=== PATIENT | female | born 1970 | race Caucasian/White ===

== ENCOUNTER 2016-05-30 09:31 | Emergency (ER) | payer OTHER ==
[2016-05-30] MEDS ORDERED: Ondansetron INJ* 2 MG/ML VIAL IV ONE (10:31)
[2016-05-30] MEDS ORDERED: HYDROmorphone INJ* 1 MG/ML CARPUJECT SYRINGE IV ONE (10:31)
[2016-05-30] MEDS ORDERED: NS 0.9% 1000 ML* 1,000 ML IV ONE (10:31)
[2016-05-30 10:44] LABS: Urine Bacteria Absent (Absent); Urine Bilirubin Negative (Negative); Urine Glucose Negative (Negative); Urine Nitrite Negative (Negative)
--- NOTE | 2016-05-30 11:31 | RAD ---
Indication: Pelvic pain. COMPARISON: Comparison is made with a prior ultrasound of the pelvis from May 29, 2015. TECHNIQUE: Multiple real-time transvaginal images of the pelvis were obtained. FINDINGS: The uterus is heterogeneous in echogenicity and upper limits of normal in size. The uterus measured 9.6 x 4.6 x 5.6 cm. The endometrial echo measured 0.4 cm in thickness. There are masses within the body and fundus of the uterus measuring 0.6 x 0.3 x 0.6 and 2.0 x 1.9 x 1.7 cm consistent with leiomyomas. The right ovary measured 2.7 x 2.5 x 2.4 cm. The patient is status post left oophorectomy. There is vascular flow within the right ovary. There is a small 1.1 cm right ovarian follicular cyst. There is a tubular structure adjacent to the right ovary which is unchanged from the prior study suggestive of a hydrosalpinx No free intraperitoneal fluid is seen. IMPRESSION: 1. SMALL TO MODERATE SIZE LEIOMYOMAS. 2. RIGHT-SIDE HYDROSALPINX, UNCHANGED. 3. STATUS POST LEFT OOPHORECTOMY.
[2016-05-30 12:25] LABS: Hematocrit 38 % (35-47); Hemoglobin 12.4 g/dl (12.0-16.0); Mean Corpuscular HGB Conc 33 g/dl (31-36); Mean Corpuscular Hemoglobin 30 pg (27-31); Mean Corpuscular Volume 92 fL (80-97); Mean Platelet Volume 8 um3 (7.4-10.4); Red Blood Count 4.09 10^6/ul (4.0-5.4); Red Cell Distribution Width 14 % (10.5-15); White Blood Count 9.9 10^3/ul (3.5-10.8)
[2016-05-30 12:56] LABS: ALT 10 U/L (7-52); AST 13 U/L (13-39); Albumin 3.5 g/dL (3.2-5.2); Alkaline Phosphatase 62 U/L (34-104); Anion Gap 4 mmol/L (2-11); BUN/Creatinine Ratio 11.9 (8-20); Blood Urea Nitrogen 8 mg/dL (6-24); C Reactive Protein 23.13 mg/L (< 5.00); CO2 Carbon Dioxide 24 mmol/L (22-32); Calcium 8.3 mg/dL (8.6-10.3); Chloride 107 mmol/L (101-111); EGFR Non-African American 95.6 (>60); Globulin 3.1 g/dL (2-4); Glucose 94 mg/dL (70-100); Lipase 22 U/L (11.0-82.0); Potassium 3.8 mmol/L (3.5-5.0); Sodium 135 mmol/L (133-145); Total Protein 6.6 g/dL (6.4-8.9)
[2016-05-30 14:57] VITALS: BP 49/17
--- NOTE | 2016-05-31 15:51 | ED ---
South Owen Karl, scribed for Selvin Horvath MD on 05/30/16 at 0957 . Abdominal Pain/Female - HPI Summary HPI Summary: Pt is a 46 y/o female that presents to the ED c/o suprapubic abd pain that began 2 days ago and has gotten worse. Pt reported the pain as a 10/10 intermittent stabbing pain "like someone is stabbing me in the stomach." Pt reported that it bothered her last night and again this morning. Pt reported that her menses began 2 days ago in concurrence with her abd pain but stated that her abd pain is like nothing she has ever felt before. Pt also reported that her pain is aggravated by walking and that she tried taking ibuprofen but it did not alleviate her symptoms. Pt denied nausea, urinary sx, problems moving bowels, and vaginal bleeding/discharge. - History of Current Complaint Chief Complaint: EDAbdPain Stated Complaint: ABD PAIN Time Seen by Provider: 05/30/16 09:55 Hx Obtained From: Patient Hx Last Menstrual Period: 04/25/14 Onset/Duration: Gradual Onset, Lasting Days - 2, Worse Since Timing: Intermittent Episode Lasting - "a while" Severity Initially: Moderate Severity Currently: Moderate Pain Intensity: 10 - abd pain Pain Scale Used: 0-10 Numeric Location: Suprapubic Radiates: No Character: Sharp Aggravating Factor(s): Movement - walking Alleviating Factor(s): Nothing Associated Signs and Symptoms: Negative: Urinary Symptoms, Vaginal Bleeding, Vaginal Discharge, Nausea Allergies/Adverse Reactions: Allergies Allergy/AdvReac Type Severity Reaction Status Date / Time Metoclopramide [From Reglan] Allergy Agitation Verified 05/30/16 09:42 Niacin [From Niaspan] Allergy Rash Verified 05/30/16 09:42 PMH/Surg Hx/FS Hx/Imm Hx Endocrine/Hematology History: Denies: Hx Anticoagulant Therapy, Hx Diabetes, Hx Thyroid Disease Cardiovascular History: Reports: Hx Angina, Other Cardiovascular Problems/ Disorders - CP WITH CARDIAC CATH IN 2011 WITH NO FINDINGS. Denies: Hx Hypertension, Hx Pacemaker/ICD Respiratory History: Reports: Other Respiratory Problems/Disorders - SOB WITH NAUSEA OR ANXIETY Denies: Hx Asthma, Hx Chronic Obstructive Pulmonary Disease (COPD) History: Denies: Hx Renal Disease Musculoskeletal History: Reports: Hx Back Problems, Other Musculoskeletal History - Restless leg syndrome, undiagnosed probs with spine and left side Sensory History: Reports: Hx Contacts or Glasses Denies: Hx Hearing Aid Opthamlomology History: Reports: Hx Contacts or Glasses Neurological History: Reports: Hx Headaches, Hx Migraine, Other Neuro Impairments/Disorders - restless leg syndrome, sees zaida as out pt Denies: Hx Dementia, Hx Seizures Psychiatric History: Reports: Hx Anxiety Denies: Hx Panic Disorder, Hx Substance Abuse - Cancer History Hx Chemotherapy: No Hx Radiation Therapy: No Hx Palliative Cancer Treatment: No - Surgical History Surgery Procedure, Year, and Place: throat biopsy. x2. tubal ligation. hernia repair x2. left oophrectomy. 3 lumps removed 2 were on rt and lt arm and then one on rt buttock Hx Anesthesia Reactions: No - Immunization History Date of Tetanus Vaccine: Unk Date of Influenza Vaccine: Philisophically opposed Infectious Disease History: No Infectious Disease History: Denies: Hx Hepatitis, Hx Human Immunodeficiency Virus (HIV), History Other Infectious Disease, Traveled Outside the [place] in Last 30 Days - Family History Known Family History: Positive: Cardiac Disease - CAD - Social History Alcohol Use: Occasionally Alcohol Amount: 1-2 PER MONTH Substance Use Type: Reports: None Hx Tobacco Use: No Smoking Status (MU): Never Smoked Tobacco Review of Systems Constitutional: Negative Eyes: Negative ENT: Negative Cardiovascular: Negative Respiratory: Negative Positive: Abdominal Pain. Negative: Nausea Genitourinary: Negative Musculoskeletal: Negative Skin: Negative Neurological: Negative Psychological: Normal All Other Systems Reviewed And Are Negative: Yes Physical Exam Triage Information Reviewed: Yes Vital Signs On Initial Exam: Initial Vitals Temp Pulse Resp BP Pulse Ox 98.2 F 77 16 99/57 97 05/30/16 09:42 05/30/16 09:42 05/30/16 09:42 05/30/16 09:42 05/30/16 09:42 Vital Signs Reviewed: Yes Appearance: Positive: Well-Appearing, No Pain Distress Skin: Positive: Warm, Skin Color Reflects Adequate Perfusion, Dry Head/Face: Positive: Normal Head/Face Inspection Eyes: Positive: Normal ENT: Positive: Normal ENT inspection Neck: Positive: Supple, Nontender Respiratory/Lung Sounds: Positive: Clear to Auscultation, Breath Sounds Present Cardiovascular: Positive: RRR Abdomen Description: Positive: Soft, Other: - mild tenderness in adnexa Bowel Sounds: Positive: Present Pelvic Exam: Positive: external exam normal, speculum exam normal, bimanual exam normal, no cerv. motion tender, no masses, blood Musculoskeletal: Positive: Normal Neurological: Positive: Normal Psychiatric: Positive: Normal, Affect/Mood Appropriate Diagnostics - Vital Signs Vital Signs Temp Pulse Resp BP Pulse Ox 05/30/16 09:44 79 94 05/30/16 09:42 98.2 F 77 16 99/57 97 - Laboratory Lab Results: Lab Results 05/30/16 05/30/16 05/30/16 Range/Units 08:14 10:17 12:10 WBC 9.9 (3.5-10.8) 10^3/ul RBC 4.09 (4.0-5.4) 10^6/ul Hgb 12.4 (12.0-16.0) g/dl Hct 38 (35-47) % MCV 92 (80-97) fL MCH 30 (27-31) pg MCHC 33 (31-36) g/dl RDW 14 (10.5-15) % Plt Count 200 (150-450) 10^3/ul MPV 8 (7.4-10.4) um3 Neut % (Auto) 72.3 (38-83) % Lymph % (Auto) 19.8 L (25-47) % [place] % (Auto) 7.1 (1-9) % Eos % (Auto) 0.4 (0-6) % Baso % (Auto) 0.4 (0-2) % Absolute Neuts (auto) 7.2 (1.5-7.7) 10^3/ul Absolute Lymphs (auto) 2.0 (1.0-4.8) 10^3/ul Absolute Monos (auto) 0.7 (0-0.8) 10^3/ul Absolute Eos (auto) 0 (0-0.6) 10^3/ul Absolute Basos (auto) 0 (0-0.2) 10^3/ul Absolute Nucleated RBC 0 10^3/ul Nucleated RBC % 0 Sodium (133-145) mmol/L Potassium (3.5-5.0) mmol/L Chloride (101-111) mmol/L Carbon Dioxide (22-32) mmol/L Anion Gap (2-11) mmol/L BUN (6-24) mg/dL Creatinine (0.51-0.95) mg/dL Est GFR ( Amer) (>60) Est GFR (Non-Af Amer) (>60) BUN/Creatinine Ratio (8-20) Glucose (70-100) mg/dL Lactic Acid (0.5-2.0) mmol/L Calcium (8.6-10.3) mg/dL Total Bilirubin (0.2-1.0) mg/dL AST (13-39) U/L ALT (7-52) U/L Alkaline Phosphatase (34-104) U/L C-Reactive Protein (< 5.00) mg/L Total Protein (6.4-8.9) g/dL Albumin (3.2-5.2) g/dL Globulin (2-4) g/dL Albumin/Globulin Ratio (1-3) Lipase (11.0-82.0) U/L Beta HCG, Quant mIU/mL Urine Color Yellow Urine Appearance Cloudy Urine pH 6.0 (5-9) Ur Specific [place] 1.021 (1.010-1.030) Urine Protein Negative (Negative) Urine Ketones Negative (Negative) Urine Blood 3+ H (Negative) Urine Nitrate Negative (Negative) Urine Bilirubin Negative (Negative) Urine Urobilinogen Negative (Negative) Ur Leukocyte Esterase Trace H (Negative) Urine WBC (Auto) Trace(0-5/hpf) (Absent) Urine RBC (Auto) 3+(>10/hpf) H (Absent) Ur Squamous Epith Cells Present H (Absent) Urine Bacteria Absent (Absent) Urine Glucose Negative (Negative) C.trachomatis (Amp Det) Negative (Negative) N.gonorrhoeae (Amp Det) Negative (Negative) T.vaginalis (Amp Det) Pending 05/30/16 05/30/16 Range/Units 12:10 12:10 WBC (3.5-10.8) 10^3/ul RBC (4.0-5.4) 10^6/ul Hgb (12.0-16.0) g/dl Hct (35-47) % MCV (80-97) fL MCH (27-31) pg MCHC (31-36) g/dl RDW (10.5-15) % Plt Count (150-450) 10^3/ul MPV (7.4-10.4) um3 Neut % (Auto) (38-83) % Lymph % (Auto) (25-47) % [place] % (Auto) (1-9) % Eos % (Auto) (0-6) % Baso % (Auto) (0-2) % Absolute Neuts (auto) (1.5-7.7) 10^3/ul Absolute Lymphs (auto) (1.0-4.8) 10^3/ul Absolute Monos (auto) (0-0.8) 10^3/ul Absolute Eos (auto) (0-0.6) 10^3/ul Absolute Basos (auto) (0-0.2) 10^3/ul Absolute Nucleated RBC 10^3/ul Nucleated RBC % Sodium 135 (133-145) mmol/L Potassium 3.8 (3.5-5.0) mmol/L Chloride 107 (101-111) mmol/L Carbon Dioxide 24 (22-32) mmol/L Anion Gap 4 (2-11) mmol/L BUN 8 (6-24) mg/dL Creatinine 0.67 (0.51-0.95) mg/dL Est GFR ( Amer) 123.0 (>60) Est GFR (Non-Af Amer) 95.6 (>60) BUN/Creatinine Ratio 11.9 (8-20) Glucose 94 (70-100) mg/dL Lactic Acid 0.4 L (0.5-2.0) mmol/L Calcium 8.3 L (8.6-10.3) mg/dL Total Bilirubin 0.40 (0.2-1.0) mg/dL AST 13 (13-39) U/L ALT 10 (7-52) U/L Alkaline Phosphatase 62 (34-104) U/L C-Reactive Protein 23.13 H (< 5.00) mg/L Total Protein 6.6 (6.4-8.9) g/dL Albumin 3.5 (3.2-5.2) g/dL Globulin 3.1 (2-4) g/dL Albumin/Globulin Ratio 1.1 (1-3) Lipase 22 (11.0-82.0) U/L Beta HCG, Quant < 0.60 mIU/mL Urine Color Urine Appearance Urine pH (5-9) Ur Specific [place] (1.010-1.030) Urine Protein (Negative) Urine Ketones (Negative) Urine Blood (Negative) Urine Nitrate (Negative) Urine Bilirubin (Negative) Urine Urobilinogen (Negative) Ur Leukocyte Esterase (Negative) Urine WBC (Auto) (Absent) Urine RBC (Auto) (Absent) Ur Squamous Epith Cells (Absent) Urine Bacteria (Absent) Urine Glucose (Negative) C.trachomatis (Amp Det) (Negative) N.gonorrhoeae (Amp Det) (Negative) T.vaginalis (Amp Det) Result Diagrams: 05/30/16 12:10 05/30/16 12:10 Lab Statement: Any lab studies that have been ordered have been reviewed, and results considered in the medical decision making process. - Additional Comments Diagnostic Additional Comments: US Transvaginal (Radiologist)IMPRESSION: 1. SMALL TO MODERATE SIZE LEIOMYOMAS. 2. RIGHT-SIDE HYDROSALPINX, UNCHANGED. 3. STATUS POST LEFT OOPHORECTOMY. Abdominal Pain Fem Course/Dx - Course Course Of Treatment: Nova Raya presented C/O suprapubic pain for two days in conjunction with her early period. Her periods have become a bit irregular of late. She denied any D/C (aside from blood( fever, or GI symptoms. Her W/U including labs, U/S and pelvic exam was unremarkable. She was D/C'd to home with symptomatic treatment. - Diagnoses Provider Diagnoses: PELVIC PAIN Discharge - Discharge Plan Condition: Stable Disposition: HOME Prescriptions: HYDROcodone/ACETAMIN 5-325 MG* [[place] 5-325 TAB*] 1 tab PO Q6H PRN #20 tab MDD 4 PRN Reason: Pain Patient Education Materials: Pelvic Pain in Women (ED) Forms: *Work Release Referrals: Irena Qureshi MD [Primary Care Provider] - Additional Instructions: Please follow up with your primary care provider. Return to the emergency department for changing or worsening symptoms. The documentation as recorded by the South olsen Karl accurately reflects the service I personally performed and the decisions made by me, Selvin Horvath MD. Addendum entered and electronically signed by Marisa Rg PA 06/01/16 07: 51: ED Addendum Addendum: Patient vaginal culture grew gardnerella per note is not having any vaginal discharge so no need for treatment. Attempted to call patient to confirm but number no longer in service.
== END 2016-05-30 14:56 | disposition home or self-care (01) ==
LOC: ED 09:31
DX: R10.2 Pelvic and perineal pain (principal); N76.0 Acute vaginitis; B96.89 Other specified bacterial agents as the cause of diseases classified elsewhere; D21.9 Benign neoplasm of connective and other soft tissue, unspecified; N70.11 Chronic salpingitis
CPT/HCPCS: 36415; 76830; 80053; 81003; 81015; 83605; 83690; 84702; 85025; 86140; 87086; 87480; 87491; 87510; 87591; 87661; 96360; 96374; 96375; 99283; J1170; J2405

== ENCOUNTER 2016-06-22 14:50 | Emergency (ER) | payer OTHER ==
[2016-06-22 17:09] LABS: Hematocrit 41 % (35-47); Hemoglobin 13.4 g/dl (12.0-16.0); Mean Corpuscular HGB Conc 32 g/dl (31-36); Mean Corpuscular Hemoglobin 30 pg (27-31); Mean Corpuscular Volume 92 fL (80-97); Mean Platelet Volume 8 um3 (7.4-10.4); Red Blood Count 4.47 10^6/ul (4.0-5.4); Red Cell Distribution Width 14 % (10.5-15); White Blood Count 6.2 10^3/ul (3.5-10.8)
[2016-06-22 17:25] LABS: Albumin 3.6 g/dL (3.2-5.2); BUN/Creatinine Ratio 10.1 (8-20); Calcium 8.7 mg/dL (8.6-10.3); EGFR African American 118.9 (>60); EGFR Non-African American 92.4 (>60); Globulin 3.4 g/dL (2-4); Potassium 4.1 mmol/L (3.5-5.0); Total Bilirubin 0.4 mg/dL (0.2-1.0)
[2016-06-22 18:57] LABS: Urine Bacteria Absent (Absent); Urine Bilirubin Negative (Negative); Urine Glucose Negative (Negative); Urine Nitrite Negative (Negative)
[2016-06-22] MEDS ORDERED: Ketorolac INJ* 60 MG/2 ML VIAL IM ONE (19:25)
--- NOTE | 2016-06-22 19:32 | ED ---
Abdominal Pain/Female - HPI Summary HPI Summary: pt with loweer abd pain for 1 month, seen in ed dx as ovarian cyst, seen by card table attendant states increased pain told by pcp to go to ed, pain radiates down leg - History of Current Complaint Chief Complaint: EDAbdPain Stated Complaint: LEFT FLANK PAIN, Time Seen by Provider: 06/22/16 19:14 Hx Obtained From: Patient Hx Last Menstrual Period: 04/25/14 Timing: Intermittent Episode Lasting Severity Initially: Moderate Severity Currently: Moderate Pain Intensity: 10 Location: Discrete At: LLQ Radiates: Yes Radiates to: Other - lt leg Aggravating Factor(s): Nothing Alleviating Factor(s): Vomiting Associated Signs and Symptoms: Positive: Negative Allergies/Adverse Reactions: Allergies Allergy/AdvReac Type Severity Reaction Status Date / Time Metoclopramide [From Reglan] Allergy Agitation Verified 05/30/16 09:42 Niacin [From Niaspan] Allergy Rash Verified 05/30/16 09:42 PMH/Surg Hx/FS Hx/Imm Hx Endocrine/Hematology History: Denies: Hx Anticoagulant Therapy, Hx Diabetes, Hx Thyroid Disease Cardiovascular History: Reports: Hx Angina, Other Cardiovascular Problems/ Disorders - CP WITH CARDIAC CATH IN 2011 WITH NO FINDINGS. Denies: Hx Hypertension, Hx Pacemaker/ICD Respiratory History: Reports: Other Respiratory Problems/Disorders - SOB WITH NAUSEA OR ANXIETY Denies: Hx Asthma, Hx Chronic Obstructive Pulmonary Disease (COPD) History: Denies: Hx Renal Disease Musculoskeletal History: Reports: Hx Back Problems, Other Musculoskeletal History - Restless leg syndrome, undiagnosed probs with spine and left side Sensory History: Reports: Hx Contacts or Glasses Denies: Hx Hearing Aid Opthamlomology History: Reports: Hx Contacts or Glasses Neurological History: Reports: Hx Headaches, Hx Migraine, Other Neuro Impairments/Disorders - restless leg syndrome, sees mamtaman as out pt Denies: Hx Dementia, Hx Seizures Psychiatric History: Reports: Hx Anxiety Denies: Hx Panic Disorder, Hx Substance Abuse - Cancer History Hx Chemotherapy: No Hx Radiation Therapy: No Hx Palliative Cancer Treatment: No - Surgical History Surgery Procedure, Year, and Place: throat biopsy. x2. tubal ligation. hernia repair x2. left oophrectomy. 3 lumps removed 2 were on rt and lt arm and then one on rt buttock Hx Anesthesia Reactions: No - Immunization History Date of Tetanus Vaccine: Unk Date of Influenza Vaccine: Philisophically opposed Infectious Disease History: No Infectious Disease History: Denies: Hx Hepatitis, Hx Human Immunodeficiency Virus (HIV), History Other Infectious Disease, Traveled Outside the [place] in Last 30 Days - Family History Known Family History: Positive: Cardiac Disease - CAD - Social History Alcohol Use: Occasionally Alcohol Amount: 1-2 PER MONTH Substance Use Type: Reports: None Hx Tobacco Use: No Smoking Status (MU): Never Smoked Tobacco Review of Systems Constitutional: Negative All Other Systems Reviewed And Are Negative: Yes Physical Exam Triage Information Reviewed: Yes Vital Signs On Initial Exam: Initial Vitals Temp Pulse Resp BP Pulse Ox 98.5 F 78 20 94/62 98 06/22/16 14:54 06/22/16 14:54 06/22/16 14:54 06/22/16 14:54 06/22/16 14:54 Vital Signs Reviewed: Yes Appearance: Positive: Well-Appearing, No Pain Distress Skin: Positive: Warm Head/Face: Positive: Normal Head/Face Inspection Eyes: Positive: HAILEY ENT: Positive: Hearing grossly normal Neck: Positive: Supple Respiratory/Lung Sounds: Positive: Clear to Auscultation, Breath Sounds Present Cardiovascular: Positive: RRR Abdomen Description: Positive: Nontender, Soft Bowel Sounds: Positive: Present Musculoskeletal: Positive: Strength/ROM Intact Neurological: Positive: Sensory/Motor Intact, Alert, Oriented to Person Place, Time Psychiatric: Positive: Normal Diagnostics - Vital Signs Vital Signs Temp Pulse Resp BP Pulse Ox 06/22/16 17:34 98.3 F 70 18 96/57 99 06/22/16 14:56 98.5 F 79 18 94/62 99 06/22/16 14:54 98.5 F 78 20 94/62 98 - Laboratory Lab Results: Lab Results 06/22/16 06/22/16 06/22/16 Range/Units 16:58 16:58 18:45 WBC 6.2 (3.5-10.8) 10^3/ul RBC 4.47 (4.0-5.4) 10^6/ul Hgb 13.4 (12.0-16.0) g/dl Hct 41 (35-47) % MCV 92 (80-97) fL MCH 30 (27-31) pg MCHC 32 (31-36) g/dl RDW 14 (10.5-15) % Plt Count 210 (150-450) 10^3/ul MPV 8 (7.4-10.4) um3 Neut % (Auto) 61.0 (38-83) % Lymph % (Auto) 27.9 (25-47) % [place] % (Auto) 10.0 H (1-9) % Eos % (Auto) 0.7 (0-6) % Baso % (Auto) 0.4 (0-2) % Absolute Neuts (auto) 3.8 (1.5-7.7) 10^3/ul Absolute Lymphs (auto) 1.7 (1.0-4.8) 10^3/ul Absolute Monos (auto) 0.6 (0-0.8) 10^3/ul Absolute Eos (auto) 0 (0-0.6) 10^3/ul Absolute Basos (auto) 0 (0-0.2) 10^3/ul Absolute Nucleated RBC 0 10^3/ul Nucleated RBC % 0 Sodium 132 L (133-145) mmol/L Potassium 4.1 (3.5-5.0) mmol/L Chloride 108 (101-111) mmol/L Carbon Dioxide 22 (22-32) mmol/L Anion Gap 2 (2-11) mmol/L BUN 7 (6-24) mg/dL Creatinine 0.69 (0.51-0.95) mg/dL Est GFR ( Amer) 118.9 (>60) Est GFR (Non-Af Amer) 92.4 (>60) BUN/Creatinine Ratio 10.1 (8-20) Glucose 92 (70-100) mg/dL Calcium 8.7 (8.6-10.3) mg/dL Total Bilirubin 0.40 (0.2-1.0) mg/dL AST 16 (13-39) U/L ALT 13 (7-52) U/L Alkaline Phosphatase 63 (34-104) U/L Total Protein 7.0 (6.4-8.9) g/dL Albumin 3.6 (3.2-5.2) g/dL Globulin 3.4 (2-4) g/dL Albumin/Globulin Ratio 1.1 (1-3) Lipase 31 (11.0-82.0) U/L Urine Color Yellow Urine Appearance Clear Urine pH 7.0 (5-9) Ur Specific [place] 1.018 (1.010-1.030) Urine Protein Negative (Negative) Urine Ketones Negative (Negative) Urine Blood 1+ H (Negative) Urine Nitrate Negative (Negative) Urine Bilirubin Negative (Negative) Urine Urobilinogen Negative (Negative) Ur Leukocyte Esterase Negative (Negative) Urine WBC (Auto) Trace(0-5/hpf) (Absent) Urine RBC (Auto) Trace(0-2/hpf) (Absent) Ur Squamous Epith Cells Present H (Absent) Urine Bacteria Absent (Absent) Urine Glucose Negative (Negative) Urine Ascorbic Acid * H (Negative) Result Diagrams: 06/22/16 16:58 06/22/16 16:58 Lab Statement: Any lab studies that have been ordered have been reviewed, and results considered in the medical decision making process. Abdominal Pain Fem Course/Dx - Diagnoses Provider Diagnoses: Abdominal pain Discharge - Discharge Plan Condition: Improved Disposition: HOME Prescriptions: Naproxen TAB* [Naprosyn TAB*] 500 mg PO BID #30 tab Patient Education Materials: Abdominal Pain (ED) Additional Instructions: follow up with your physician within the next few days
[2016-06-22 20:44] VITALS: BP 136/100
== END 2016-06-22 20:43 | disposition home or self-care (01) ==
LOC: ED 14:50
DX: R10.32 Left lower quadrant pain (principal)
CPT/HCPCS: 36415; 80053; 81003; 81015; 83690; 85025; 96372; 99284; J1885

== ENCOUNTER 2016-06-24 22:38 | Emergency (ER) | payer OTHER ==
--- NOTE | 2016-06-25 01:49 | ED ---
hilary Owen Timothy, scribed for Raymond Mcknight MD on 06/25/16 at 0133 . GI/ HPI - HPI Summary HPI Summary: Nova Raya is a 46 yo female presenting to [facility] with 2/10 lower abd pain and heavy vaginal bleeding since 0630 this morning. She was recently diagnosed with fibroids. Her MHx includes anxiety, DELEON, restless leg syndrome, hernia repair, bilateral oophorectomy. - History of Current Complaint Chief Complaint: EDVaginalBleeding Time Seen by Provider: 06/25/16 01:31 Stated Complaint: VAG BLEED WITH CLOTS Hx Obtained From: Patient Onset/Duration: Started Hours Ago, Still Present Timing: Constant Severity: Moderate Current Severity: Moderate Pain Intensity: 2 Location of Pain: Suprapubic Associated Signs and Symptoms: Positive: Abdominal Pain - Allergy/Home Medications Allergies/Adverse Reactions: Allergies Allergy/AdvReac Type Severity Reaction Status Date / Time Metoclopramide [From Reglan] Allergy Agitation Verified 05/30/16 09:42 Niacin [From Niaspan] Allergy Rash Verified 05/30/16 09:42 PMH/Surg Hx/FS Hx/Imm Hx Endocrine/Hematology History: Denies: Hx Anticoagulant Therapy, Hx Diabetes, Hx Thyroid Disease Cardiovascular History: Reports: Hx Angina, Other Cardiovascular Problems/ Disorders - CP WITH CARDIAC CATH IN 2011 WITH NO FINDINGS. Denies: Hx Hypertension, Hx Pacemaker/ICD Respiratory History: Reports: Other Respiratory Problems/Disorders - SOB WITH NAUSEA OR ANXIETY Denies: Hx Asthma, Hx Chronic Obstructive Pulmonary Disease (COPD) History: Denies: Hx Renal Disease Musculoskeletal History: Reports: Hx Back Problems, Other Musculoskeletal History - Restless leg syndrome, undiagnosed probs with spine and left side Sensory History: Reports: Hx Contacts or Glasses Denies: Hx Hearing Aid Opthamlomology History: Reports: Hx Contacts or Glasses Neurological History: Reports: Hx Headaches, Hx Migraine, Other Neuro Impairments/Disorders - restless leg syndrome, sees mamtaman as out pt Denies: Hx Dementia, Hx Seizures Psychiatric History: Reports: Hx Anxiety Denies: Hx Panic Disorder, Hx Substance Abuse - Cancer History Hx Chemotherapy: No Hx Radiation Therapy: No Hx Palliative Cancer Treatment: No - Surgical History Surgery Procedure, Year, and Place: throat biopsy. x2. tubal ligation. hernia repair x2. left oophrectomy. 3 lumps removed 2 were on rt and lt arm and then one on rt buttock Hx Anesthesia Reactions: No - Immunization History Date of Tetanus Vaccine: Unk Date of Influenza Vaccine: Philisophically opposed Infectious Disease History: No Infectious Disease History: Denies: Hx Hepatitis, Hx Human Immunodeficiency Virus (HIV), History Other Infectious Disease, Traveled Outside the [place] in Last 30 Days - Family History Known Family History: Positive: Cardiac Disease - CAD - Social History Alcohol Use: Occasionally Alcohol Amount: 1-2 PER MONTH Substance Use Type: Reports: None Hx Tobacco Use: No Smoking Status (MU): Never Smoked Tobacco Review of Systems Constitutional: Negative Eyes: Negative ENT: Negative Cardiovascular: Negative Respiratory: Negative Positive: Abdominal Pain Genitourinary: Other - vaginal bleeding Musculoskeletal: Negative Skin: Negative Neurological: Negative Psychological: Normal All Other Systems Reviewed And Are Negative: Yes Physical Exam Triage Information Reviewed: Yes Vital Signs On Initial Exam: Initial Vitals Temp Pulse Resp BP Pulse Ox 97 F 75 18 103/57 98 06/24/16 22:44 06/24/16 22:44 06/24/16 22:44 06/24/16 22:44 06/24/16 22:44 Vital Signs Reviewed: Yes Appearance: Positive: Well-Appearing, No Pain Distress Skin: Positive: Warm Head/Face: Positive: Normal Head/Face Inspection Eyes: Positive: HAILEY ENT: Positive: Hearing grossly normal Neck: Positive: Supple Respiratory/Lung Sounds: Positive: Breath Sounds Present Cardiovascular: Positive: RRR Abdomen Description: Positive: Nontender, No Organomegaly, Soft Bowel Sounds: Positive: Present Neurological: Positive: Alert, Oriented to Person Place, Time Diagnostics - Vital Signs Vital Signs Temp Pulse Resp BP Pulse Ox 06/25/16 00:15 82 97/60 99 06/24/16 22:44 97 F 75 18 103/57 98 - Laboratory Result Diagrams: 06/25/16 02:07 Lab Statement: Any lab studies that have been ordered have been reviewed, and results considered in the medical decision making process. 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 After clinical examination and review of her lab work, she will be discharged home with dysfunctional uterine bleeding and instructions to follow up with her RN LAB. - Diagnoses Provider Diagnoses: Dysfunctional uterine bleeding Discharge - Discharge Plan Condition: Stable Disposition: HOME Patient Education Materials: Dysfunctional Uterine Bleeding (ED) Referrals: Irena Qureshi MD [Primary Care Provider] - Cedrick Santana MD [Medical Doctor] - 2 Days Additional Instructions: Please follow up with your GENERAL F[facility]ER within 2 days regarding your visit to the emergency department today. Return to the emergency department with any new or recurring symptoms. The documentation as recorded by the hilary olsen Timothy accurately reflects the service I personally performed and the decisions made by me, Raymond Mcknight MD.
[2016-06-25 02:17] LABS: Hematocrit 38 % (35-47); Hemoglobin 12.5 g/dl (12.0-16.0); Mean Corpuscular HGB Conc 33 g/dl (31-36); Mean Corpuscular Hemoglobin 30 pg (27-31); Mean Corpuscular Volume 93 fL (80-97); Mean Platelet Volume 8 um3 (7.4-10.4); Red Blood Count 4.15 10^6/ul (4.0-5.4); Red Cell Distribution Width 14 % (10.5-15); White Blood Count 6.9 10^3/ul (3.5-10.8)
[2016-06-25 02:51] VITALS: BP 92/60
== END 2016-06-25 02:53 | disposition home or self-care (01) ==
LOC: ED 22:38
DX: N93.8 Other specified abnormal uterine and vaginal bleeding (principal); R10.30 Lower abdominal pain, unspecified
CPT/HCPCS: 36415; 85025; 99282

== ENCOUNTER 2017-01-06 15:23 | Emergency (ER) | payer BC, OTHER ==
[2017-01-06 15:32] VITALS: BP 102/57
--- NOTE | 2017-01-06 17:43 | RAD ---
INDICATION: Right foot pain. TECHNIQUE: 3 views of the right foot were obtained. FINDINGS: There is soft tissue swelling over the dorsal aspect of the foot. The bones are in normal alignment. No fracture is seen. There is mild osteoarthritic change in the first metatarsal-phalangeal joint. IMPRESSION: NO EVIDENCE FOR FRACTURE, IF THE PATIENT'S SYMPTOMS PERSIST RECOMMEND FOLLOW-UP IMAGING.
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
== END 2017-01-06 18:38 | disposition home or self-care (01) ==
LOC: ED 15:23
DX: M79.671 Pain in right foot (principal); W22.8XXA Striking against or struck by other objects, initial encounter; Y92.9 Unspecified place or not applicable
CPT/HCPCS: 99281

== ENCOUNTER 2017-07-12 16:42 | Emergency (ER) | payer BC ==
[2017-07-12 18:08] LABS: ABS Basophils 0 10^3/ul (0-0.2); ABS Eosinophils 0 10^3/ul (0-0.6); ABS Lymphocytes 2.1 10^3/ul (1.0-4.8); ABS Monocytes 0.5 10^3/ul (0-0.8); ABS Neutrophils 3.9 10^3/ul (1.5-7.7); ABS Nucleated RBC 0 10^3/ul; Eosinophil % 0.4 % (0-6); Hematocrit 38 % (35-47); Hemoglobin 12.5 g/dl (12.0-16.0); Lymphocyte % 32.4 % (25-47); Mean Corpuscular HGB Conc 33 g/dl (31-36); Mean Corpuscular Hemoglobin 30 pg (27-31); Mean Corpuscular Volume 92 fL (80-97); Mean Platelet Volume 7 um3 (7.4-10.4); Nucleated Red Blood Cells % 0; Platelet Count 239 10^3/ul (150-450); Red Blood Count 4.15 10^6/ul (4.0-5.4); Red Cell Distribution Width 14 % (10.5-15); White Blood Count 6.5 10^3/ul (3.5-10.8)
[2017-07-12 18:32] LABS: EGFR Non-African American 83.6 (>60)
--- NOTE | 2017-07-12 19:03 | RAD ---
Indication: Chest pain. 2 views of the chest including dual energy PA views demonstrate no mediastinal shift. Heart is of normal size and configuration. Lung dias demonstrate no pleural fluid, pneumonia or pneumothorax. IMPRESSION: No active cardiopulmonary disease is noted.
[2017-07-12 19:56] VITALS: BP 94/45
--- NOTE | 2017-07-16 19:32 | ED ---
Natividad Owen Gabriel, scribed for Wero Lockwood MD on 07/12/17 at 1742 . HPI Chest Pain - HPI Summary HPI Summary: This patient is a 47 year old F presenting to [facility] accompanied by her partner with a chief complaint of CP since a few hours ago. Pt was at work putting clothes away during onset. The patient rates the sharp pain 9/10 in severity and states it radiates down her left arm. Symptoms aggravated by breathing deeply. Patient reports LE weakness, light headedness, and DELEON. Patient denies cough, LE edema, and ABD pain. Pt had a mediastinoscopy in the past. - History of Current Complaint Chief Complaint: EDChestPainROMI Hx Obtained From: Patient Hx Last Menstrual Period: 04/25/14 Onset/Duration: Started Hours Ago, Still Present Timing: Constant Initial Severity: Severe Current Severity: Severe Pain Intensity: 9 Pain Scale Used: 0-10 Numeric Chest Pain Location: Diffuse Chest Pain Radiates: Yes Chest Pain Radiates To:: Arm Character: Sharp/Stabbing Aggravating Factor(s): Deep Breaths Associated Signs and Symptoms: Positive: Negative - cough, LE edema, and ABD pain, Other: - LE weakness, light headedness, and DELEON. - Allergy/Home Medications Allergies/Adverse Reactions: Allergies Allergy/AdvReac Type Severity Reaction Status Date / Time MS Metoclopramide Allergy Agitation Verified 05/30/16 09:42 [From Reglan] MS Niacin [From Niaspan] Allergy Rash Verified 05/30/16 09:42 PMH/Surg Hx/FS Hx/Imm Hx Endocrine/Hematology History: Denies: Hx Anticoagulant Therapy, Hx Diabetes, Hx Thyroid Disease Cardiovascular History: Reports: Hx Angina, Other Cardiovascular Problems/ Disorders - CP WITH CARDIAC CATH IN 2011 WITH NO FINDINGS. Denies: Hx Hypertension, Hx Pacemaker/ICD Respiratory History: Reports: Other Respiratory Problems/Disorders - SOB WITH NAUSEA OR ANXIETY Denies: Hx Asthma, Hx Chronic Obstructive Pulmonary Disease (COPD) History: Denies: Hx Renal Disease Musculoskeletal History: Reports: Hx Back Problems, Other Musculoskeletal History - Restless leg syndrome, undiagnosed probs with spine and left side Sensory History: Reports: Hx Contacts or Glasses Denies: Hx Hearing Aid Opthamlomology History: Reports: Hx Contacts or Glasses Neurological History: Reports: Hx Headaches, Hx Migraine, Other Neuro Impairments/Disorders - restless leg syndrome, sees zaida as out pt Denies: Hx Dementia, Hx Seizures Psychiatric History: Reports: Hx Anxiety Denies: Hx Panic Disorder, Hx Substance Abuse - Cancer History Hx Chemotherapy: No Hx Radiation Therapy: No Hx Palliative Cancer Treatment: No - Surgical History Surgery Procedure, Year, and Place: throat biopsy. x2. tubal ligation. hernia repair x2. left oophrectomy. 3 lumps removed 2 were on rt and lt arm and then one on rt buttock Hx Anesthesia Reactions: No - Immunization History Date of Tetanus Vaccine: Unk Date of Influenza Vaccine: Philisophically opposed Infectious Disease History: No Infectious Disease History: Denies: Hx Hepatitis, Hx Human Immunodeficiency Virus (HIV), History Other Infectious Disease, Traveled Outside the [place] in Last 30 Days - Family History Known Family History: Positive: Cardiac Disease - CAD - Social History Occupation: Employed Full-time - [employer] Lives: With Family Alcohol Use: Occasionally Alcohol Amount: 1-2 PER MONTH Substance Use Type: Reports: None Hx Tobacco Use: No Smoking Status (MU): Never Smoked Tobacco Review of Systems Positive: Chest Pain Negative: Cough Negative: Abdominal Pain Negative: Edema Neurological: Other - light headed Positive: Headache, Weakness All Other Systems Reviewed And Are Negative: Yes Physical Exam - Summary Physical Exam Summary: Appearance: Well-appearing, Well-nourished Skin: Warm, Dry, No rash Eyes: Normal, PERRL, EOMI, sclera anicteric ENT: Normal Neck: Supple, nontender Respiratory: Clear to auscultation Cardiovascular: S1, S2, no murmur, no rub, no gallop Abdomen: Soft, nontender, no organomegaly Bowel sounds: Present Musculoskeletal: Normal, Strength/ROM Intact, no edema, pulses symmetrical Neurological: Normal, A&Ox3, cranial nerves II-XII WNL, follows commands, gait not tested, sensation intact to pin and light touch Psychiatric: affect normal, behavior appropriate, dressed appropriately, judgment intact Triage Information Reviewed: Yes Vital Signs On Initial Exam: Initial Vitals Temp Pulse Resp BP Pulse Ox 97.1 F 66 18 114/62 100 07/12/17 16:52 07/12/17 16:52 07/12/17 16:52 07/12/17 16:52 07/12/17 16:52 Vital Signs Reviewed: Yes Diagnostics - Vital Signs Vital Signs Temp Pulse Resp BP Pulse Ox 07/12/17 16:52 97.1 F 66 18 114/62 100 - Laboratory Result Diagrams: 07/12/17 18:00 07/12/17 18:00 Lab Statement: Any lab studies that have been ordered have been reviewed, and results considered in the medical decision making process. - Radiology CXR Radiology Interpretation Completed By: Radiologist - no active cardiopulmonary disease is noted ED physician has reviewed this radiology report and agrees. - EKG 17:01 Cardiac Rate: NL EKG Rhythm: Sinus Rhythm - at 65 BPM EKG Interpretation: borderline T wave abnormalities in the inferior leads Chest Pain Course/Dx - Course Assessment/Plan: This patient is a 47 year old F presenting to [facility] accompanied by her partner with a chief complaint of CP since a few hours ago. Pt was at work putting clothes away during onset. The patient rates the sharp pain 9/10 in severity and states it radiates down her left arm. Symptoms aggravated by breathing deeply. Patient reports LE weakness, light headedness, and DELEON. Patient denies cough, LE edema, and ABD pain. Pt had a mediastinoscopy in the. An EKG reveals borderline T wave abnormalities in the inferior leads. CXR reveals, per radiologist, no active cardiopulmonary disease is noted. ED physician has reviewed this radiology report and agrees. Test results with no significant abnormalities. Dx atypical chest pain. Patient will be discharged and follow up from PCP. The patient is agreeable with this plan. - Diagnoses Provider Diagnoses: Atypical chest pain Discharge - Discharge Plan Condition: Good Disposition: HOME Patient Education Materials: Chest Pain (ED) Referrals: Irena Qureshi MD [Primary Care Provider] - The documentation as recorded by the Natividad olsen Gabriel accurately reflects the service I personally performed and the decisions made by me, Wero Lockwood MD.
== END 2017-07-12 19:54 | disposition home or self-care (01) ==
LOC: ED 16:42
DX: R07.89 Other chest pain (principal); Z88.8 Allergy status to other drugs, medicaments and biological substances
CPT/HCPCS: 36415; 71046; 80053; 84484; 85025; 85379; 93005; 99283

== ENCOUNTER 2017-08-27 16:24 | Emergency (ER) | payer BC ==
[2017-08-27 17:29] LABS: ABS Basophils 0 10^3/ul (0-0.2); ABS Eosinophils 0 10^3/ul (0-0.6); ABS Lymphocytes 1.3 10^3/ul (1.0-4.8); ABS Monocytes 0.4 10^3/ul (0-0.8); ABS Neutrophils 4.1 10^3/ul (1.5-7.7); ABS Nucleated RBC 0 10^3/ul; Eosinophil % 0.2 % (0-6); Hematocrit 37 % (35-47); Hemoglobin 12.2 g/dl (12.0-16.0); Lymphocyte % 22.6 % (25-47); Mean Corpuscular HGB Conc 33 g/dl (31-36); Mean Corpuscular Hemoglobin 30 pg (27-31); Mean Corpuscular Volume 91 fL (80-97); Mean Platelet Volume 7.5 um3 (7.4-10.4); Nucleated Red Blood Cells % 0; Platelet Count 185 10^3/ul (150-450); Red Blood Count 4.02 10^6/ul (4.0-5.4); Red Cell Distribution Width 14 % (10.5-15); White Blood Count 5.8 10^3/ul (3.5-10.8)
[2017-08-27] MEDS ORDERED: Ketorolac INJ* 30 MG/ML 1 ML VIAL IV PUSH ONE (17:30)
[2017-08-27 17:40] LABS: EGFR Non-African American 90.5 (>60)
[2017-08-27] MEDS ORDERED: Iohexol 300* (CONTRAST) 10 ML SDV IV ONE (17:52)
--- NOTE | 2017-08-27 18:35 | RAD ---
Indication: Fall, abdominal pain. Contrast: Administered 82.0 ml of OMNIPAQUE 300 mg/ml CT of the abdomen and pelvis was performed after IV contrast administration. Coronal and sagittal reconstructed images were obtained. Comparison is made with previous exam dated December 10, 2013. The lung bases demonstrate no pleural fluid, nodules or masses. Heart is of normal size without evidence of pericardial effusion. Liver is normal in size. No focal lesions or intrahepatic ductal dilatation is noted. The gallbladder demonstrates no calcified gallstones. No pericholecystic fluid or wall thickening is noted. Pancreas demonstrates no mass or pancreatic duct dilatation. The spleen is normal in size. No adrenal masses are noted. The kidneys demonstrate symmetric nephrograms. No retroperitoneal lymphadenopathy is noted. No dilated loops of bowel are noted. CT of the pelvis demonstrates no free fluid. Right ovarian cyst measuring up to 2.1 cm is noted. Left ovary is unremarkable. No free fluid is identified. Diverticulosis of the sigmoid colon is noted. 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 No hernias are noted. Anterior abdominal wall laxity is noted. The appendix is unremarkable. Pelvic ring is intact. No fracture of the pelvis or right hip is noted. IMPRESSION: No definite evidence of obstructive uropathy is noted. The appendix appears to be within normal limits. No fracture of the right hip is noted. Right adnexal cyst presumably an ovarian cyst measuring up to 2.1 cm.
--- NOTE | 2017-08-27 18:48 | ED ---
Adult Trauma - HPI Summary HPI Summary: 47-year-old female presents with epigastric pain and left hip pain after a fall Saturday. She states she was at the laundromat and slipped on some soap and did a splint. She states she landed on her tailbone. She states she does not believe she landed on her abdomen but since then she's been having abdominal pain. She states she denies some blood in saliva when she dry heaved. She admits occasional nausea. She denies any chest pain or shortness of breath. She denies any back pain. She has been able to ambulate. She denies any numbness tingling. She denies any previous injury to the area. She denies any saddle anesthesia or loss of bowel or bladder. - History of Current Complaint Chief Complaint: EDAbdPain Stated Complaint: FALL/ABD PAIN Time Seen by Provider: 08/27/17 17:00 Hx Last Menstrual Period: 04/25/14 Pain Intensity: 10 - Allergy/Home Medications Allergies/Adverse Reactions: Allergies Allergy/AdvReac Type Severity Reaction Status Date / Time niacin Allergy Rash Verified 08/27/17 16:32 metoclopramide [From Reglan] AdvReac Agitation Verified 08/27/17 16:32 Home Medications: Home Medications Citalopram TAB* [CeleXA TAB*] 30 mg PO DAILY 08/27/17 [History Confirmed ] Folic Acid TAB* [Folvite TAB*] 1 mg PO DAILY 08/27/17 [History Confirmed ] Gabapentin CAP(*) [Neurontin 300 CAP(*)] 1,200 mg PO BEDTIME 08/27/17 [History Confirmed 08/27/17] Omeprazole CAP* [Prilosec CAP* 20 MG] 20 mg PO DAILY 08/27/17 [History Confirmed 08/27/17] Zonisamide(NF) [Zonegran(NF)] 50 mg PO TID 08/27/17 [History Confirmed 08/27/17] PMH/Surg Hx/FS Hx/Imm Hx Endocrine/Hematology History: Denies: Hx Anticoagulant Therapy, Hx Diabetes, Hx Thyroid Disease Cardiovascular History: Reports: Hx Angina, Other Cardiovascular Problems/ Disorders - CP WITH CARDIAC CATH IN 2011 WITH NO FINDINGS. Denies: Hx Hypertension, Hx Pacemaker/ICD Respiratory History: Reports: Other Respiratory Problems/Disorders - SOB WITH NAUSEA OR ANXIETY Denies: Hx Asthma, Hx Chronic Obstructive Pulmonary Disease (COPD) History: Denies: Hx Renal Disease Musculoskeletal History: Reports: Hx Back Problems, Other Musculoskeletal History - Restless leg syndrome, undiagnosed probs with spine and left side Sensory History: Reports: Hx Contacts or Glasses Denies: Hx Hearing Aid Opthamlomology History: Reports: Hx Contacts or Glasses Neurological History: Reports: Hx Headaches, Hx Migraine, Other Neuro Impairments/Disorders - restless leg syndrome, sees stackman as out pt Denies: Hx Dementia, Hx Seizures Psychiatric History: Reports: Hx Anxiety Denies: Hx Panic Disorder, Hx Substance Abuse - Cancer History Hx Chemotherapy: No Hx Radiation Therapy: No Hx Palliative Cancer Treatment: No - Surgical History Surgery Procedure, Year, and Place: throat biopsy. x2. tubal ligation. hernia repair x2. left oophrectomy. 3 lumps removed 2 were on rt and lt arm and then one on rt buttock Hx Anesthesia Reactions: No - Immunization History Date of Tetanus Vaccine: Unk Date of Influenza Vaccine: Philisophically opposed Infectious Disease History: No Infectious Disease History: Denies: Hx Hepatitis, Hx Human Immunodeficiency Virus (HIV), History Other Infectious Disease, Traveled Outside the [place] in Last 30 Days - Family History Known Family History: Positive: Cardiac Disease - CAD - Social History Alcohol Use: Rare Alcohol Amount: 1-2 PER MONTH Substance Use Type: Reports: None Hx Tobacco Use: No Smoking Status (MU): Never Smoked Tobacco Review of Systems Negative: Fever Negative: Chest Pain Negative: Shortness Of Breath Positive: Abdominal Pain, Vomiting Positive: Myalgia - left hip pain All Other Systems Reviewed And Are Negative: Yes Physical Exam Triage Information Reviewed: Yes Vital Signs On Initial Exam: Initial Vitals Temp Pulse Resp BP Pulse Ox 97.9 F 85 18 100/63 99 08/27/17 16:27 08/27/17 16:27 08/27/17 16:27 08/27/17 16:27 08/27/17 16:27 Vital Signs Reviewed: Yes Appearance: Positive: Well-Appearing Skin: Positive: Warm, Dry Head/Face: Positive: Normal Head/Face Inspection Eyes: Positive: Normal, Conjunctiva Clear Respiratory/Lung Sounds: Positive: Clear to Auscultation, Breath Sounds Present , Other - nontender back Cardiovascular: Positive: Normal, RRR Abdomen Description: Positive: Soft, Other: - mild tenderness epigastric Bowel Sounds: Positive: Present Musculoskeletal: Positive: Strength/ROM Intact - left hip, Other - good pulses, sensation grossly intact, nontender back Neurological: Positive: Normal Psychiatric: Positive: Normal Diagnostics - Vital Signs Vital Signs Temp Pulse Resp BP Pulse Ox 08/27/17 18:42 76 99/56 94 08/27/17 18:13 76 99 08/27/17 18:12 75 20 102/61 97 08/27/17 16:27 97.9 F 85 18 100/63 99 - Laboratory Lab Results: Lab Results 08/27/17 08/27/17 Range/Units 16:55 16:55 WBC 5.8 (3.5-10.8) 10^3/ul RBC 4.02 (4.0-5.4) 10^6/ul Hgb 12.2 (12.0-16.0) g/dl Hct 37 (35-47) % MCV 91 (80-97) fL MCH 30 (27-31) pg MCHC 33 (31-36) g/dl RDW 14 (10.5-15) % Plt Count 185 (150-450) 10^3/ul MPV 7.5 (7.4-10.4) um3 Neut % (Auto) 70.2 (38-83) % Lymph % (Auto) 22.6 L (25-47) % [place] % (Auto) 6.8 (0-7) % Eos % (Auto) 0.2 (0-6) % Baso % (Auto) 0.2 (0-2) % Absolute Neuts (auto) 4.1 (1.5-7.7) 10^3/ul Absolute Lymphs (auto) 1.3 (1.0-4.8) 10^3/ul Absolute Monos (auto) 0.4 (0-0.8) 10^3/ul Absolute Eos (auto) 0 (0-0.6) 10^3/ul Absolute Basos (auto) 0 (0-0.2) 10^3/ul Absolute Nucleated RBC 0 10^3/ul Nucleated RBC % 0 Sodium 136 L (139-145) mmol/L Potassium 3.4 L (3.5-5.0) mmol/L Chloride 106 (101-111) mmol/L Carbon Dioxide 23 (22-32) mmol/L Anion Gap 7 (2-11) mmol/L BUN 7 (6-24) mg/dL Creatinine 0.70 (0.51-0.95) mg/dL Est GFR ( Amer) 116.4 (>60) Est GFR (Non-Af Amer) 90.5 (>60) BUN/Creatinine Ratio 10.0 (8-20) Glucose 87 (70-100) mg/dL Calcium 8.5 L (8.6-10.3) mg/dL Total Bilirubin 0.30 (0.2-1.0) mg/dL AST 13 (13-39) U/L ALT 9 (7-52) U/L Alkaline Phosphatase 62 (34-104) U/L Total Protein 6.7 (6.4-8.9) g/dL Albumin 3.6 (3.2-5.2) g/dL Globulin 3.1 (2-4) g/dL Albumin/Globulin Ratio 1.2 (1-3) Lipase 29 (11.0-82.0) U/L Beta HCG, Quant < 0.60 mIU/mL Result Diagrams: 08/27/17 16:55 08/27/17 16:55 Lab Statement: Any lab studies that have been ordered have been reviewed, and results considered in the medical decision making process. - CT abd CT Interpretation: No Acute Changes - IMPRESSION: No definite evidence of obstructive uropathy is noted. The appendix appears to be within normal limits. No fracture of the right hip is noted. Right adnexal cyst presumably an ovarian cyst measuring up to 2.[address] Interpretation Completed By: Radiologist Adult Trauma Course/Dx - Course Course Of Treatment: 47-year-old female presents with epigastric pain and left hip pain after a fall Saturday. She states she was at the laundromat and slipped on some soap and did a splint. She states she landed on her tailbone. She states she does not believe she landed on her abdomen but since then she's been having abdominal pain. She states she denies some blood in saliva when she dry heaved. She admits occasional nausea. She denies any chest pain or shortness of breath. She denies any back pain. She has been able to ambulate. She denies any numbness tingling. She denies any previous injury to the area. She denies any saddle anesthesia or loss of bowel or bladder. On exam nontender. Mild epigastric tenderness. Tenderness of left hip. Neuro grossly intact. CT abdomen and pelvis normal. labs within normal limits. Do not have a reason for the epigastric pain. but may be due to gastritis from taking ibuprofen. Told to treat as sprain of left hip with rice. Patient understands agrees with plan. - Diagnoses Differential Diagnosis/HQI/PQRI: Positive: Contusion(s), Fracture, Hematoma(s) Provider Diagnoses: Abdominal pain, Left hip pain Discharge - Sign-Out/Discharge Documenting (check all that apply): Discharge/Admit/Transfer - Discharge Plan Condition: Good Disposition: HOME Patient Education Materials: Hip Sprain (ED) Referrals: Irena Qureshi MD [Primary Care Provider] - Additional Instructions: Take Tylenol or ibuprofen every 6 hours as needed for pain Apply ice, rest, elevate Follow up with primary care physician within 5 days Return to ED if develop any new or worsening symptoms - Billing Disposition and Condition Condition: GOOD Disposition: HOME
[2017-08-27 20:00] VITALS: BP 110/67
== END 2017-08-27 20:00 | disposition home or self-care (01) ==
LOC: ED 16:24
DX: R10.13 Epigastric pain (principal); R10.9 Unspecified abdominal pain; R11.10 Vomiting, unspecified; M25.552 Pain in left hip; Z91.81 History of falling
CPT/HCPCS: 36415; 74177; 80053; 83690; 84702; 85025; 99283; J1885; Q9967

== ENCOUNTER → 2017-12-13 10:30 | Emergency (ER) | payer SELFPAY ==
[~2017-12-13 10:30] MED LIST: Aspirin 81 mg CHEW TAB* 81 MG TAB.CHEW ONE; Aspirin 81 mg CHEW TAB* 81 MG TAB.CHEW PO ONE; Aspirin TAB* 325 MG PO ONE; Iohexol 350* (CONTRAST) 500 ML MDV IV ONE; Morphine INJ* 2 MG/ML 1 ML SYRINGE (TWO MG - NEW SYRINGE VERSION) IV ONE; Morphine INJ* 2 MG/ML 1 ML SYRINGE (TWO MG - NEW SYRINGE VERSION) ONE; Morphine INJ** 4 MG/ML 1 ML CARPUJECT IV ONE; Ondansetron INJ* 2 MG/ML VIAL IV ONE
--- NOTE | 2017-12-13 10:53 | ED ---
HPI Chest Pain - HPI Summary HPI Summary: This is scribe Kumar Chu documenting for attending Dr. Selvin Horvath MD. This patient is a 47 year old F BIBA with a chief complaint of constant, sharp, stabbing, tight CP since 10am this morning. The patient rates the pain 10/10 in severity. Symptoms aggravated by breathing. Patient reports SOB, tingling in her fingers, DELEON, leg weakness, cough, anxiety, and pain in the left arm. Pt had an anxiety attack at 7am this morning and reports she hasnt had an anxiety attack in a long time. PMHX anxiety. I, Dr. Horvath, personally performed the services described in this documentation as scribed in my presence and it is both accurate and complete. - History of Current Complaint Chief Complaint: EDChestPainROMI Time Seen by Provider: 12/13/17 10:41 Hx Obtained From: Patient Hx Last Menstrual Period: 04/25/14 Onset/Duration: Started Hours Ago - 1 Timing: Constant Initial Severity: Severe Current Severity: Severe Pain Intensity: 10 Pain Scale Used: 0-10 Numeric Chest Pain Radiates: Yes Chest Pain Radiates To:: Arm - l Character: Dyspnea at Rest, Pressure/Squeezing, Sharp/Stabbing, Tightness Associated Signs and Symptoms: Positive: Chest Pain, Anxiety, Headaches, Numbness, Tingling, Weakness, Shortness of Breath, Cough - Allergy/Home Medications Allergies/Adverse Reactions: Allergies Allergy/AdvReac Type Severity Reaction Status Date / Time niacin Allergy Rash Verified 12/13/17 10:38 metoclopramide [From Reglan] AdvReac Agitation Verified 12/13/17 10:38 Home Medications: Home Medications Folic Acid TAB* [Folvite TAB*] 1 mg PO DAILY 12/13/17 [History Confirmed ] Gabapentin TAB(NF) [Neurontin 600 mg TAB(NF)] 1,200 mg PO BEDTIME 12/13/17 [ History Confirmed 12/13/17] Zonisamide(NF) [Zonegran(NF)] 200 mg PO BEDTIME 12/13/17 [History Confirmed 02/20] PMH/Surg Hx/FS Hx/Imm Hx Endocrine/Hematology History: Denies: Hx Anticoagulant Therapy, Hx Diabetes, Hx Thyroid Disease Cardiovascular History: Reports: Hx Angina, Other Cardiovascular Problems/ Disorders - CP WITH CARDIAC CATH IN 2012 WITH NO FINDINGS. Denies: Hx Hypertension, Hx Pacemaker/ICD Respiratory History: Reports: Other Respiratory Problems/Disorders - SOB WITH NAUSEA OR ANXIETY Denies: Hx Asthma, Hx Chronic Obstructive Pulmonary Disease (COPD) History: Denies: Hx Renal Disease Musculoskeletal History: Reports: Hx Back Problems, Other Musculoskeletal History - Restless leg syndrome, undiagnosed probs with spine and left side Sensory History: Reports: Hx Contacts or Glasses Denies: Hx Hearing Aid Opthamlomology History: Reports: Hx Contacts or Glasses Neurological History: Reports: Hx Headaches, Hx Migraine, Other Neuro Impairments/Disorders - restless leg syndrome, sees stackman as out pt Denies: Hx Dementia, Hx Seizures Psychiatric History: Reports: Hx Anxiety Denies: Hx Panic Disorder, Hx Substance Abuse - Cancer History Hx Chemotherapy: No Hx Radiation Therapy: No Hx Palliative Cancer Treatment: No - Surgical History Surgery Procedure, Year, and Place: throat biopsy. x2. tubal ligation. hernia repair x2. left oophrectomy. 3 lumps removed 2 were on rt and lt arm and then one on rt buttock Hx Anesthesia Reactions: No - Immunization History Date of Tetanus Vaccine: Unk Date of Influenza Vaccine: Philisophically opposed Infectious Disease History: No Infectious Disease History: Denies: Hx Hepatitis, Hx Human Immunodeficiency Virus (HIV), History Other Infectious Disease, Traveled Outside the [place] in Last 30 Days - Family History Known Family History: Positive: Cardiac Disease - CAD - Social History Alcohol Use: Rare Alcohol Amount: 1-2 PER MONTH Substance Use Type: Reports: None Hx Tobacco Use: No Smoking Status (MU): Never Smoked Tobacco Review of Systems Positive: Fatigue. Negative: Fever Positive: Chest Pain Positive: Shortness Of Breath, Cough Positive: Headache, Weakness, Numbness Positive: Anxious All Other Systems Reviewed And Are Negative: Yes Physical Exam - Summary Physical Exam Summary: Appearance: The patient is well-nourished in no acute distress and in no acute pain. Skin: The skin is warm and dry and skin color reflects adequate perfusion. HEENT: The head is normocephalic and atraumatic. The pupils are equal and reactive. The conjunctivae are clear and without drainage. Nares are patent and without drainage. Mouth reveals moist mucous membranes and the throat is without erythema and exudate. The external ears are intact. The ear canals are patent and without drainage. The tympanic membranes are intact. Neck: The neck is supple with full range of motion and non-tender. There are no carotid bruits. There is no neck vein distension. Respiratory: Chest is non-tender. Lungs are clear to auscultation and breath sounds are symmetrical and equal. Cardiovascular: Heart is regular rate and rhythm. There is no murmur or rub auscultated. There is no peripheral edema and pulses are symmetrical and equal. Abdomen: The abdomen is soft and non-tender. There are normal bowel sounds heard in all four quadrants and there is no organomegaly palpated. Musculoskeletal: There is no back tenderness noted. Extremities are non-tender with full range of motion. There is good capillary refill. There is no peripheral edema or calf tenderness elicited. Neurological: Patient is alert and oriented to person, place and time. The patient has symmetrical motor strength in all four extremities. Cranial nerves are grossly intact. Deep tendon reflexes are symmetrical and equal in all four extremities. Psychiatric: The patient has an appropriate affect and does not exhibit any anxiety or depression. Triage Information Reviewed: Yes Vital Signs On Initial Exam: Initial Vitals Temp Pulse Resp BP Pulse Ox 98.2 F 70 18 91/52 99 12/13/17 10:33 12/13/17 10:33 12/13/17 10:33 12/13/17 10:33 12/13/17 10:33 Vital Signs Reviewed: Yes Diagnostics - Vital Signs Vital Signs Temp Pulse Resp BP Pulse Ox 12/13/17 10:33 98.2 F 70 18 91/52 99 - Laboratory Result Diagrams: 12/13/17 10:56 12/13/17 10:56 Lab Statement: Any lab studies that have been ordered have been reviewed, and results considered in the medical decision making process. - Radiology CXR Radiology Interpretation Completed By: Radiologist - NO ACTIVE DISEASE. ED Physician has reviewed this report - CT Chest/Thorax CTA CT Interpretation Completed By: Radiologist - #. No evidence for pulmonary embolism. #. Borderline cardiomegaly without significant change. #. No acute cardiopulmonary process evident. ED Physician has reviewed this report - EKG 10:42 Cardiac Rate: NL EKG Rhythm: Sinus Rhythm - [address] Segment: Normal Ectopy: None EKG Interpretation: No STEMI Chest Pain Course/Dx - Course Course Of Treatment: Ms. Raya presented with chest pain which began this morning. She did wake up during the night with a panic attack which she has had in the past. Which she describes as waking up feeling short of breath and anxious. She describes the chest pain is sharp and cannot relate any exacerbating or relieving factors or associated symptoms. Her exam was unremarkable as was her chest x-ray and lab workup including a d-dimer and delayed troponin. I'm not sure what the etiology of her chest pain is but it does not seem to be dangerous at this time and I recommended close follow-up. - Diagnoses Provider Diagnoses: Chest pain Discharge - Sign-Out/Discharge Documenting (check all that apply): Patient Departure - discharge - Discharge Plan Condition: Stable Disposition: HOME Patient Education Materials: Chest Pain (ED) Referrals: Irena Qureshi MD [Primary Care Provider] - 2 Days Additional Instructions: RETURN TO THE EMERGENCY DEPARTMENT FOR CHANGING OR WORSENING SYMPTOMS - Billing Disposition and Condition Condition: STABLE Disposition: Home
[2017-12-13 11:05] LABS: ABS Basophils 0 10^3/ul (0-0.2); ABS Eosinophils 0 10^3/ul (0-0.6); ABS Lymphocytes 1.4 10^3/ul (1.0-4.8); ABS Monocytes 0.3 10^3/ul (0-0.8); ABS Neutrophils 2.9 10^3/ul (1.5-7.7); ABS Nucleated RBC 0 10^3/ul; Eosinophil % 0.8 % (0-6); Hematocrit 37 % (35-47); Hemoglobin 12.4 g/dl (12.0-16.0); Lymphocyte % 29.8 % (25-47); Mean Corpuscular HGB Conc 33 g/dl (31-36); Mean Corpuscular Hemoglobin 30 pg (27-31); Mean Corpuscular Volume 90 fL (80-97); Mean Platelet Volume 7.6 um3 (7.4-10.4); Nucleated Red Blood Cells % 0.2; Platelet Count 215 10^3/ul (150-450); Red Blood Count 4.12 10^6/ul (4.00-5.40); Red Cell Distribution Width 14 % (10.5-15); White Blood Count 4.7 10^3/ul (3.5-10.8)
[2017-12-13 11:14] LABS: INR 0.89 (0.77-1.02)
--- NOTE | 2017-12-13 11:18 | RAD ---
INDICATION: Chest pain COMPARISON: July 12, 2017 TECHNIQUE: An AP portable view obtained at 1100 hours is submitted. FINDINGS: Bones/Soft Tissues: There are no acute bony findings. Cardiomediastinal: The cardiomediastinal silhouette is normal. Lungs: There are no infiltrates. Pleura: There are no pleural effusions. Other: None IMPRESSION: NO ACTIVE DISEASE.
[2017-12-13 11:36] LABS: EGFR Non-African American 81.1 (>60)
--- NOTE | 2017-12-13 14:57 | RAD ---
INDICATION: Shortness of breath. Assess for pulmonary embolism. COMPARISON: December 13, 2017 chest radiograph and August 30, [address] TECHNIQUE: Multidetector CT images were obtained from the lung apices to the upper abdomen with 64 mL Omnipaque 350 IV contrast. Pulmonary angiogram protocol. Multiplanar reformation including with maximum intensity projection. REPORT: No pulmonary infiltrate, focal pulmonary lesion, pleural effusion, or pneumothorax. Minimal dependent atelectasis. Negative for thoracic lymphadenopathy. Borderline cardiomegaly. Negative for pericardial effusion. Normal diameter thoracic aorta. No filling defects are identified from the main to the subsegmental pulmonary arteries to indicate presence of a pulmonary embolism. Unremarkable images through the upper abdomen. Negative for suspicious thoracic osseous lesions. IMPRESSION: #. No evidence for pulmonary embolism. #. Borderline cardiomegaly without significant change. #. No acute cardiopulmonary process evident.
[2017-12-13 15:40] VITALS: BP 96/56
== END | disposition home or self-care (01) ==
LOC: ED 10:30
DX: R07.89 Other chest pain (principal); F41.0 Panic disorder [episodic paroxysmal anxiety]; F41.9 Anxiety disorder, unspecified; I51.7 Cardiomegaly; Z88.8 Allergy status to other drugs, medicaments and biological substances
CPT/HCPCS: 36415; 71045; 71275; 80053; 83605; 83880; 84443; 84484; 84702; 85025; 85379; 85610; 93005; 96374; 96375; 96376; 99283; A9270-GY; J2270; J2405; Q9967

== ENCOUNTER 2018-05-20 13:20 | Emergency (ER) | payer BC ==
[2018-05-20 13:34] VITALS: BP 110/56
--- NOTE | 2018-05-20 13:49 | UC ---
Complaint Female HPI - HPI Summary HPI Summary: 48 yo female presents with progress urinary discomfort - dysuria, freq / urg, lower abd dicomfort. Worsening over approx 4-5 days. No fever. No diarrhea. No recent illness. No GI issues, including no n/v. Recently recovering from influenza. - History Of Current Complaint Chief Complaint: UCGU Stated Complaint: URINARY COMPLAINT Time Seen by Provider: 05/20/18 13:30 Hx Obtained From: Patient, Family/Legal Researcher Hx Last Menstrual Period: 04/25/14 Pain Intensity: 6 - Allergies/Home Medications Allergies/Adverse Reactions: Allergies Allergy/AdvReac Type Severity Reaction Status Date / Time niacin Allergy Rash Verified 05/20/18 13:34 metoclopramide [From Reglan] AdvReac Agitation Verified 05/20/18 13:34 Home Medications: Home Medications Doxepin (NF) 10 mg PO QPM 05/20/18 [History Confirmed 05/20/18] PMH/Surg Hx/FS Hx/Imm Hx Previously Healthy: Yes Other History Of: Negative For: Anticoagulant Therapy - Surgical History Surgical History: Yes Surgery Procedure, Year, and Place: throat biopsy. x2. tubal ligation. hernia repair x2. left oophrectomy. 3 lumps removed 2 were on rt and lt arm and then one on rt buttock - Family History Known Family History: Positive: Cardiac Disease - CAD - Social History Alcohol Use: Rare Alcohol Amount: 1-2 PER MONTH Substance Use Type: None Smoking Status (MU): Never Smoked Tobacco - Immunization History Most Recent Influenza Vaccination: not sure Most Recent Tetanus Shot: none Most Recent Pneumonia Vaccination: none Review of Systems All Other Systems Reviewed And Are Negative: Yes Constitutional: Positive: Negative Skin: Positive: Negative Eyes: Positive: Negative ENT: Positive: Negative Respiratory: Positive: Negative Cardiovascular: Positive: Negative Gastrointestinal: Positive: Negative Genitourinary: Positive: Other - see hpi Motor: Positive: Negative Neurovascular: Positive: Negative Musculoskeletal: Positive: Negative Neurological: Positive: Negative Psychological: Positive: Negative Is Patient Immunocompromised?: No Physical Exam Triage Information Reviewed: Yes Appearance: Well-Nourished - looks tired, but NAD, nontoxic appearance. Vital Signs: Initial Vital Signs Temp 97.7 F 05/20/18 13:29 Pulse 73 05/20/18 13:29 Resp 18 05/20/18 13:29 BP 110/56 05/20/18 13:29 Pulse Ox 99 05/20/18 13:29 Vital Signs Reviewed: Yes Eye Exam: Normal ENT Exam: Normal Neck exam: Normal Respiratory Exam: Normal Respiratory: Positive: Chest non-tender, Lungs clear, Normal breath sounds, No respiratory distress, No accessory muscle use Cardiovascular Exam: Normal Cardiovascular: Positive: RRR, No Murmur, Pulses Normal, Brisk Capillary Refill Abdominal Exam: Other - tender mid pelvic region, no r/g no cvat. abd soft + bs , nondistended Bowel Sounds: Positive: Present Musculoskeletal Exam: Normal Neurological Exam: Normal - grossly nonfocal Psychological Exam: Normal - conversing easily and appropriately Skin Exam: Normal Complaint Female Dx - Course Course Of Treatment: Reviewed results with pt. Reviewed coa / tx plan, including medication. Questions as posed answered to the best of my ability. - Differential Dx/Diagnosis Provider Diagnosis: UTI (urinary tract infection), Microscopic hematuria Discharge - Sign-Out/Discharge Documenting (check all that apply): Patient Departure All imaging exams completed and their final reports reviewed: No Studies - Discharge Plan Condition: Stable Disposition: HOME Prescriptions: ceFUROXime TAB(*) [Ceftin TAB 250 MG(*)] 500 mg PO BID #20 tab Fluconazole [Diflucan 150 MG (NF)] 150 mg PO DAILY #2 tab Phenazopyridine 200 mg (NF) [Pyridium 200 MG tab *] 200 mg PO TID PRN #12 tab PRN Reason: Pain Patient Education Materials: Dehydration (ED), Urinary Tract Infection in Women (DC), Hematuria (ED) Referrals: Irena Qureshi MD [Primary Care Provider] - Additional Instructions: Drink plenty of fluids. Please go to the Emergency Department for any worse or new problems. Urine culture has been sent. Schedule follow up with Dr. Qureshi in the next couple weeks for recheck (blood in urine). If you must take Diflucan (yeast infection), then please do not take Citalopram during that time. - Billing Disposition and Condition Condition: STABLE Disposition: Home
--- NOTE | 2018-05-21 17:02 | UC ---
- Progress Note Progress Note: 05/21/2018 Urine culture positive for E. Coli. Pt Rx Cefuroxime PO\ Final sensitivity reports still pending. No change Britt Koch PA-C Course/Dx - Diagnoses Provider Diagnoses: UTI (urinary tract infection), Microscopic hematuria Discharge - Sign-Out/Discharge Documenting (check all that apply): Patient Departure - D/C home All imaging exams completed and their final reports reviewed: No Studies - Discharge Plan Condition: Stable Disposition: HOME Prescriptions: ceFUROXime TAB(*) [Ceftin TAB 250 MG(*)] 500 mg PO BID #20 tab Fluconazole [Diflucan 150 MG (NF)] 150 mg PO DAILY #2 tab Phenazopyridine 200 mg (NF) [Pyridium 200 MG tab *] 200 mg PO TID PRN #12 tab PRN Reason: Pain Patient Education Materials: Dehydration (ED), Urinary Tract Infection in Women (DC), Hematuria (ED) Referrals: Irena Qureshi MD [Primary Care Provider] - Additional Instructions: Drink plenty of fluids. Please go to the Emergency Department for any worse or new problems. Urine culture has been sent. Schedule follow up with Dr. Qureshi in the next couple weeks for recheck (blood in urine). If you must take Diflucan (yeast infection), then please do not take Citalopram during that time. - Billing Disposition and Condition Condition: STABLE Disposition: Home
== END 2018-05-20 14:39 | disposition home or self-care (01) ==
LOC: UCEAST 13:20
DX: N39.0 Urinary tract infection, site not specified (principal); B96.20 Unspecified Escherichia coli [E. coli] as the cause of diseases classified elsewhere; R31.29 Other microscopic hematuria
CPT/HCPCS: 81003; 84702; 87077; 87086; 87186; 99212; G0463

== ENCOUNTER 2018-09-29 09:19 | Emergency (ER) | payer BC ==
--- OUTSIDE RECORDS SUMMARY | 2018-09-29 09:25 | XMS REPORT ---
:1970 Author Organization [facility] Care Team Providers Name Role Phone Cole Aldrich Unavailable Unavailable PROBLEMS Unknown Problems ALLERGIES No Information ENCOUNTERS Encounter Location Date Diagnosis [address] [address] Jan, [address] [address] Jan, [address] [address] September, [address] [address] September, [address] [address] Aug[address] Aug, [id number] [address] Jul[address] [address] Jul[address] [address] Jun[address] [place], [address] [address] May, [address] [address] May, [address] [place], [address] IMMUNIZATIONS No Known Immunizations SOCIAL HISTORY Never Assessed REASON FOR REFERRAL FUNCTIONAL STATUS PLAN OF CARE VITAL SIGNS MEDICATIONS Unknown Medications PROCEDURES No Known procedures RESULTS No Results REASON FOR VISIT 2nd no show Insurance Providers [facility] Health Member Patient Patient Patient Patient Patient Subscriber Subscriber Subscriber Group Insurance Plan Plan Plan Plan ID Relationship Address Phone Name Date of ID Name Date of No Type Insurance Insurance Insurance Coverage to Subscriber Address Phone Name Dates Blue [phone] Blue self [place] [id number] [place] [id number] [place] [address] [facility] Medical [address] Blue [phone] Blue self [place] [id number] Choice Opt [id number] [place] [id number] [id number] [place] [facility]plex Radha [facility] [id number] [id number] [phone] Medicaid self [place] [id number] Wrap [facility] [address] [place] [address] MEDICAL (GENERAL) HISTORY Type Description Date Medical History anxiety Medical History depression Medical History heartburn Medical History headache
[2018-09-29 09:36] VITALS: BP 92/55
[2018-09-29] MEDS ORDERED: Fluorescein Sodium TOPICAL* 1 MG TEST STRIP OPHTHALMIC ONE (10:31)
--- NOTE | 2018-09-29 10:48 | UC ---
Eye Complaint HPI - HPI Summary HPI Summary: Pt presents to reporting yellow discharge, itching eyes, and reddness x 2 days. This am eyes "crusted and sticky" Pt states had a head cold that is improving, but nose still stuffy. no fever, chills. no cp, sob. No cough. Pt wears contacts - has not worn since Sat evening. no known contact conjunctivitis. No vision changes. No h/o eye surgery Meds reviewed - History of Current Complaint Chief Complaint: UCEye Stated Complaint: EYE IRRITATION Time Seen by Provider: 09/29/18 10:26 Hx Obtained From: Patient, Family/Block Machine Operator Hx Last Menstrual Period: tubal ligation Onset/Duration: Gradual Onset Pain Intensity: 3 - Allergies/Home Medications Allergies/Adverse Reactions: Allergies Allergy/AdvReac Type Severity Reaction Status Date / Time niacin Allergy Rash Verified 09/29/18 09:36 metoclopramide [From Reglan] AdvReac Agitation Verified 09/29/18 09:36 Home Medications: Home Medications guaiFENesin [Mucinex] 600 mg PO 09/29/18 [History] PMH/Surg Hx/FS Hx/Imm Hx Previously Healthy: Yes Other History Of: Negative For: Anticoagulant Therapy - Surgical History Surgical History: Yes Surgery Procedure, Year, and Place: throat biopsy. x2. tubal ligation. hernia repair x2. left oophrectomy. 3 lumps removed 2 were on rt and lt arm and then one on rt buttock - Family History Known Family History: Positive: Cardiac Disease - CAD, Non-Contributory - Social History Lives: With Family Alcohol Use: Occasionally Alcohol Amount: 1-2 PER MONTH Substance Use Type: None Smoking Status (MU): Never Smoked Tobacco - Immunization History Most Recent Influenza Vaccination: not sure Most Recent Tetanus Shot: none Most Recent Pneumonia Vaccination: none Review of Systems All Other Systems Reviewed And Are Negative: Yes Constitutional: Positive: Fatigue Eyes: Positive: Drainage, Eye Redness, Photophobia ENT: Positive: Negative Respiratory: Positive: Negative Physical Exam - Summary Physical Exam Summary: Vital Signs Reviewed: Yes low grade temp A+Ox3, no distress, Eyes: ++ Conjunctiva, HAILEY. EOM intact and full, + yellow crust no photophobia crisp fundoscopic crisp b/l under fluorescene - no ulceration, fb noted either eye ENT: Hearing grossly normal TM x 2 clear, turbinates inflammed and boggy, mmoist, uvula midline, no exudate, mild erythema posterior pharynx Neck: Positive: Supple Respiratory: Positive: No respiratory distress, No accessory muscle use + CTA throughout no w/r Cardiovascular: RRR nl s1, s2 no m/r CBT <2 sec abd soft + BS nt/nd no guarding, no distension Musculoskeletal Exam: WILLIS x 4 without difficulty Strength Intact, ROM Intact Neurological: Positive: Alert, + sensation throughout Psychological: Positive: Normal Response To Family Skin: Positive: no rash, no ecchymosis Triage Information Reviewed: Yes Vital Signs: Initial Vital Signs Temp 97.8 F 09/29/18 09:30 Pulse 82 09/29/18 09:30 Resp 18 09/29/18 09:30 BP 92/55 09/29/18 09:30 Pulse Ox 97 09/29/18 09:30 Eye Complaint Course/Dx - Course Course Of Treatment: Pt presents with bilateral injection, erythema and crust discharge. Pt contact lens wearer Pt with bilateral conjunctivits no ulceration noted on fluorscene exam pt with boggy inflammed turbinates Brandt Rx ofoxacin gtt flonase no contacts throw out makeup return precautions ophtho prn - Differential Dx/Diagnosis Provider Diagnosis: Conjunctivitis Discharge - Sign-Out/Discharge Documenting (check all that apply): Patient Departure All imaging exams completed and their final reports reviewed: No Studies - Discharge Plan Condition: Stable Disposition: HOME Prescriptions: Fluticasone NASAL SPRAY 50MCG* [Flonase NASAL SPRAY 50MCG*] 2 spray BOTH NARES DAILY #1 btl Ofloxacin 0.3% (Eye Drop) [Ocuflox OPTH 0.3% (Eye Drop)] 2 drop BOTH EYES Q6HR # 1 btl Patient Education Materials: Conjunctivitis (ED) Referrals: Crescencio Yang MD [Medical Doctor] - Irena Qureshi MD [Primary Care Provider] - Additional Instructions: - uses eye drops as prescribed - be careful not to touch the tip of the eye drop bottle to your eyes - clean with alcohol wipe as needed - use nasal spray as instructed - throw out the contact you were using - do not put contact in for at least 7 days - throw eye the eye makeup you used today - use fresh email after your treatment is complete - use a warm, wet washcloth to cleanse secretions from your eye - contact the eye doctor you have been referred to with questions orconcerns - Billing Disposition and Condition Condition: STABLE Disposition: Home
== END 2018-09-29 10:57 | disposition home or self-care (01) ==
LOC: UCEAST 09:19
DX: H10.9 Unspecified conjunctivitis (principal); Z88.8 Allergy status to other drugs, medicaments and biological substances
CPT/HCPCS: 99212; A9270-GY; G0463

== ENCOUNTER 2018-11-28 12:59 | Emergency (ER) | payer BC ==
[2018-11-28] MEDS ORDERED: Ketorolac INJ* 30 MG/ML 1 ML VIAL IV PUSH ONE (13:28)
[2018-11-28 13:43] LABS: ABS Lymphocytes 0.9 10^3/ul (1.0-4.8); ABS Monocytes 0.4 10^3/ul (0-0.8); ABS Neutrophils 3.3 10^3/ul (1.5-7.7); Hematocrit 37 % (35-47); Hemoglobin 12.7 g/dL (12.0-16.0); Lymphocyte % 19.3 %; Mean Corpuscular HGB Conc 34 g/dL (31-36); Mean Corpuscular Hemoglobin 31 pg (27-31); Mean Corpuscular Volume 90 fL (80-97); Mean Platelet Volume 7.3 fL (7.4-10.4); Nucleated Red Blood Cells % 0.1; Platelet Count 194 10^3/uL (150-450); Red Blood Count 4.14 10^6 /uL (3.70-4.87); Red Cell Distribution Width 14 % (10-15); White Blood Count 4.6 10^3/uL (3.5-10.8)
[2018-11-28 13:52] LABS: INR 1.03 (0.82-1.09)
[2018-11-28 14:04] LABS: Albumin 3.8 g/dL (3.2-5.2); Albumin/Globulin Ratio 1.2 (1-3); Calcium 8.6 mg/dL (8.6-10.3); EGFR African American 93.4 (>60); EGFR Non-African American 77.2 (>60); Globulin 3.2 g/dL (2-4); Potassium 4.1 mmol/L (3.5-5.0); Total Bilirubin 0.3 mg/dL (0.2-1.0)
[2018-11-28] MEDS ORDERED: NS 0.9% 1000 ML** 1,000 ML IV ONE (14:48)
--- NOTE | 2018-11-28 16:35 | ED ---
HPI Chest Pain - HPI Summary HPI Summary: This patient is a 48-year-old female who presents to the ED with midsternal chest pain. She states she did not feel well last night and again this morning upon arriving to work she felt fatigued. She then developed midsternal chest pressure. She also has endorses some pain down the left arm, which has been intermittent. She does not endorse that currently. She states she has had these chest pains in the past and has been seen for this, however no one has diagnosed her with anything and her labs are always negative. She denies history of high blood pressure high cholesterol. Denies depression or anxiety. She does not feel like her heart is racing. Symptoms are not worse with movement or better with rest. Symptoms are slightly worse with palpation. Patient denies any cardiac disease. She takes no medications. Social history includes nonsmoker, no alcohol use, no drug use. Lives with . Past medical history includes: Alcohol use. - History of Current Complaint Chief Complaint: EDChestPainROMI Time Seen by Provider: 11/28/18 13:21 Hx Obtained From: Patient Hx Last Menstrual Period: tubal ligation Onset/Duration: Started Hours Ago Timing: Constant Initial Severity: Moderate Current Severity: Moderate Pain Intensity: 8 Pain Scale Used: 0-10 Numeric Chest Pain Location: Discrete at:, Mid Sternal Chest Pain Radiates: No Character: Dull/Aching Aggravating Factor(s): Nothing Alleviating Factor(s): Nothing Associated Signs and Symptoms: Positive: Negative - Risk Factors Pulmonary Embolism Risk Factors: Negative TAD Risk Factors: Negative - Allergy/Home Medications Allergies/Adverse Reactions: Allergies Allergy/AdvReac Type Severity Reaction Status Date / Time niacin Allergy Rash Verified 09/29/18 09:36 metoclopramide [From Reglan] AdvReac Agitation Verified 09/29/18 09:36 Home Medications: Home Medications guaiFENesin ER TAB [Mucinex*] 600 mg PO BID 11/28/18 [History Confirmed 11/28/18 ] guaiFENesin/CODIEN 100MG-10MG* [Robitussin AC 100Mg-10Mg*] 10 ml PO Q4H PRN [History Confirmed 11/28/18] PMH/Surg Hx/FS Hx/Imm Hx Previously Healthy: Yes Endocrine/Hematology History: Denies: Hx Anticoagulant Therapy, Hx Diabetes, Hx Thyroid Disease Cardiovascular History: Reports: Hx Angina, Other Cardiovascular Problems/ Disorders - CP WITH CARDIAC CATH IN 2012 WITH NO FINDINGS. Denies: Hx Hypertension, Hx Pacemaker/ICD Respiratory History: Reports: Other Respiratory Problems/Disorders - SOB WITH NAUSEA OR ANXIETY Denies: Hx Asthma, Hx Chronic Obstructive Pulmonary Disease (COPD) History: Denies: Hx Renal Disease Musculoskeletal History: Reports: Hx Back Problems, Other Musculoskeletal History - Restless leg syndrome, undiagnosed probs with spine and left side Sensory History: Reports: Hx Contacts or Glasses Denies: Hx Hearing Aid Opthamlomology History: Reports: Hx Contacts or Glasses Neurological History: Reports: Hx Headaches, Hx Migraine, Other Neuro Impairments/Disorders - restless leg syndrome, sees zaida as out pt Denies: Hx Dementia, Hx Seizures Psychiatric History: Reports: Hx Anxiety Denies: Hx Panic Disorder, Hx Substance Abuse - Cancer History Hx Chemotherapy: No Hx Radiation Therapy: No Hx Palliative Cancer Treatment: No - Surgical History Surgery Procedure, Year, and Place: throat biopsy. x2. tubal ligation. hernia repair x2. left oophrectomy. 3 lumps removed 2 were on rt and lt arm and then one on rt buttock Hx Anesthesia Reactions: No - Immunization History Date of Tetanus Vaccine: Unk Date of Influenza Vaccine: Philisophically opposed Hx Pertussis Vaccination: No Immunizations Up to Date: Yes Infectious Disease History: No Infectious Disease History: Denies: Hx Hepatitis, Hx Human Immunodeficiency Virus (HIV), History Other Infectious Disease, Traveled Outside the [place] in Last 30 Days - Family History Known Family History: Positive: Cardiac Disease - CAD, Non-Contributory - Social History Occupation: Employed Full-time Lives: With Family Alcohol Use: Rare Alcohol Amount: 1-2 PER MONTH Hx Substance Use: No Substance Use Type: Reports: None Hx Tobacco Use: No Smoking Status (MU): Never Smoked Tobacco Review of Systems Negative: Fever, Chills, Fatigue, Skin Diaphoresis Positive: Chest Pain. Negative: Palpitations Negative: Shortness Of Breath, Cough Genitourinary: Negative Positive: no symptoms reported, see HPI Negative: Arthralgia, Myalgia Skin: Negative Neurological: Negative All Other Systems Reviewed And Are Negative: Yes Physical Exam Triage Information Reviewed: Yes Vital Signs On Initial Exam: Initial Vitals Temp Pulse Resp BP Pulse Ox 98.7 F 75 20 105/54 97 07/26/19 13:01 11/28/18 13:01 11/28/18 13:01 11/28/18 13:01 11/28/18 13:01 Vital Signs Reviewed: Yes Appearance: Positive: Well-Appearing, Well-Nourished Skin: Positive: Warm, Skin Color Reflects Adequate Perfusion Head/Face: Positive: Normal Head/Face Inspection Eyes: Positive: EOMI, HAILEY, Conjunctiva Clear Neck: Positive: Supple, No Lymphadenopathy Respiratory/Lung Sounds: Positive: Clear to Auscultation, Breath Sounds Present Cardiovascular: Positive: RRR, Pulses are Symmetrical in both Upper and Lower Extremities Musculoskeletal: Positive: Strength/ROM Intact Neurological: Positive: Speech Normal Psychiatric: Positive: Normal, Affect/Mood Appropriate Diagnostics - Vital Signs Vital Signs Temp Pulse Resp BP Pulse Ox 11/28/18 15:36 71 15 98/55 96 11/28/18 15:06 73 16 103/53 96 11/28/18 15:00 77 13 92 11/28/18 14:36 82 21 82/54 96 11/28/18 14:06 72 23 98/51 94 11/28/18 14:00 71 12 94 11/28/18 13:37 78 13 94 11/28/18 13:36 76 16 104/53 91 11/28/18 13:06 75 15 105/54 11/28/18 13:01 98.7 F 75 20 105/54 97 - Laboratory Lab Results: Lab Results 11/28/18 11/28/18 11/28/18 Range/Units 13:32 13:32 13:32 WBC 4.6 (3.5-10.8) 10^3/uL RBC 4.14 (3.70-4.87) 10^6 /uL Hgb 12.7 (12.0-16.0) g/dL Hct 37 (35-47) % MCV 90 (80-97) fL MCH 31 (27-31) pg MCHC 34 (31-36) g/dL RDW 14 (10-15) % Plt Count 194 (150-450) 10^3/uL MPV 7.3 L (7.4-10.4) fL Neut % (Auto) 71.3 % Lymph % (Auto) 19.3 % [place] % (Auto) 9.2 % Eos % (Auto) 0.0 % Baso % (Auto) 0.2 % Absolute Neuts (auto) 3.3 (1.5-7.7) 10^3/ul Absolute Lymphs (auto) 0.9 L (1.0-4.8) 10^3/ul Absolute Monos (auto) 0.4 (0-0.8) 10^3/ul Absolute Eos (auto) 0.0 (0-0.6) 10^3/ul Absolute Basos (auto) 0.0 (0-0.2) 10^3/ul Absolute Nucleated RBC 0.0 10^3/ul Nucleated RBC % 0.1 INR (Anticoag Therapy) 1.03 (0.82-1.09) Sodium 135 (135-145) mmol/L Potassium 4.1 (3.5-5.0) mmol/L Chloride 105 (101-111) mmol/L Carbon Dioxide 25 (22-32) mmol/L Anion Gap 5 (2-11) mmol/L BUN 8 (6-24) mg/dL Creatinine 0.80 (0.51-0.95) mg/dL Est GFR ( Amer) 93.4 (>60) Est GFR (Non-Af Amer) 77.2 (>60) BUN/Creatinine Ratio 10.0 (8-20) Glucose 99 (70-100) mg/dL Calcium 8.6 (8.6-10.3) mg/dL Total Bilirubin 0.30 (0.2-1.0) mg/dL AST 16 (13-39) U/L ALT 12 (7-52) U/L Alkaline Phosphatase 76 (34-104) U/L Troponin I 0.00 (<0.04) ng/mL Total Protein 7.0 (6.4-8.9) g/dL Albumin 3.8 (3.2-5.2) g/dL Globulin 3.2 (2-4) g/dL Albumin/Globulin Ratio 1.2 (1-3) Result Diagrams: 11/28/18 13:32 11/28/18 13:32 Lab Statement: Any lab studies that have been ordered have been reviewed, and results considered in the medical decision making process. Chest Pain Course/Dx - Course Course Of Treatment: On arrival into the ED, the patient's evaluated for midsternal chest pressure radiating to the left arm. She did have one nitroglycerin and one aspirin via ambulance prior to arrival which did not improve her symptoms. She is also endorsing diffuse back pain, however she states this is often at her baseline. She is eating and drinking okay. She states she had to leave work to go to well now. EKG on obtained which is a normal sinus rhythm with a rate of 75. Labs obtained which are all WNL an unremarkable. Troponin 0.00. Chest x-ray shows no acute process or cardiopulmonary processes. Vital signs are stable. On physical examination, lungs CTA, RRR. She does have midsternal chest pressure, worse with palpation. She is resting comfortably, endorses pain 2/10, she has not taken gyral any medication prior to arrival. Heart score is 1 = low risk. Patient will be diagnosed with costochondritis versus other etiology. She is requesting food prior to discharge. Patients vital signs remained stable. - Chest Pain Differential Diagnosis/HQI/PQRI: Angina, Chest Wall, Other: - costochondritis - Diagnoses Provider Diagnoses: Chest wall pain Discharge - Sign-Out/Discharge Documenting (check all that apply): Patient Departure Patient Received Moderate/Deep Sedation with Procedure: No - Discharge Plan Condition: Stable Disposition: HOME Prescriptions: Ketorolac TAB * [Toradol TAB *] 10 mg PO Q6H #16 tab Patient Education Materials: Costochondritis (ED) Forms: *Work Release Referrals: Irena Qureshi MD [Primary Care Provider] - Additional Instructions: Please return if you develop any worsening symptoms Rest for the next few days Tylenol 650mg three times daily for discomfort Toradol four times daily for pain Take these intermittently Off work x 2 days - Billing Disposition and Condition Condition: STABLE Disposition: Home
[2018-11-28 16:37] VITALS: BP 96/58
== END 2018-11-28 16:35 | disposition home or self-care (01) ==
LOC: ED 12:59
DX: R07.89 Other chest pain (principal); R53.83 Other fatigue; M79.602 Pain in left arm; M54.9 Dorsalgia, unspecified; Z88.8 Allergy status to other drugs, medicaments and biological substances
CPT/HCPCS: 36415; 71046; 80053; 84484; 85025; 85610; 93005; 96361; 96374; 99284; J1885

== ENCOUNTER 2018-12-07 23:00 | Emergency (ER) | payer BC ==
--- NOTE | 2018-12-08 00:46 | ED ---
Skin Complaint - HPI Summary HPI Summary: 48 year old female presents with rash for the past week. States that she was admitted to hospital for chest pain last week. She states she noticed a rash on her right wrist a week. since then she has noticed the rash has been spreading. Is not itchy. Denies any other symptoms. No chest pressure or shortness of breath. no abdominal pain. No recent illness. No one with similar rash. has been outdoors. - History of Current Complaint Chief Complaint: EDRashSkinAbscess Time Seen by Provider: 12/08/18 00:31 Stated Complaint: RED SPOTS ALL OVER MY BODY PER PT Hx Last Menstrual Period: tubal ligation Pain Intensity: 0 - Allergy/Home Medications Allergies/Adverse Reactions: Allergies Allergy/AdvReac Type Severity Reaction Status Date / Time niacin Allergy Rash Verified 12/07/18 23:05 metoclopramide [From Reglan] AdvReac Agitation Verified 12/07/18 23:05 PMH/Surg Hx/FS Hx/Imm Hx Endocrine/Hematology History: Denies: Hx Anticoagulant Therapy, Hx Diabetes, Hx Thyroid Disease Cardiovascular History: Reports: Hx Angina, Other Cardiovascular Problems/ Disorders - CP WITH CARDIAC CATH IN 2011 WITH NO FINDINGS. Denies: Hx Hypertension, Hx Pacemaker/ICD Respiratory History: Reports: Other Respiratory Problems/Disorders - SOB WITH NAUSEA OR ANXIETY Denies: Hx Asthma, Hx Chronic Obstructive Pulmonary Disease (COPD) History: Denies: Hx Renal Disease Musculoskeletal History: Reports: Hx Back Problems, Other Musculoskeletal History - Restless leg syndrome, undiagnosed probs with spine and left side Sensory History: Reports: Hx Contacts or Glasses Denies: Hx Hearing Aid Opthamlomology History: Reports: Hx Contacts or Glasses Neurological History: Reports: Hx Headaches, Hx Migraine, Other Neuro Impairments/Disorders - restless leg syndrome, sees mamtaman as out pt Denies: Hx Dementia, Hx Seizures Psychiatric History: Reports: Hx Anxiety Denies: Hx Panic Disorder, Hx Substance Abuse - Cancer History Hx Chemotherapy: No Hx Radiation Therapy: No Hx Palliative Cancer Treatment: No - Surgical History Surgery Procedure, Year, and Place: throat biopsy. x2. tubal ligation. hernia repair x2. left oophrectomy. 3 lumps removed 2 were on rt and lt arm and then one on rt buttock Hx Anesthesia Reactions: No - Immunization History Date of Tetanus Vaccine: Unk Date of Influenza Vaccine: Philisophically opposed Infectious Disease History: No Infectious Disease History: Denies: Hx Hepatitis, Hx Human Immunodeficiency Virus (HIV), History Other Infectious Disease, Traveled Outside the [place] in Last 30 Days - Family History Known Family History: Positive: Cardiac Disease - CAD, Non-Contributory - Social History Alcohol Use: Rare Alcohol Amount: 1-2 PER MONTH Hx Substance Use: No Substance Use Type: Reports: None Hx Tobacco Use: No Smoking Status (MU): Never Smoked Tobacco Review of Systems Negative: Fever Negative: Chest Pain Negative: Shortness Of Breath Positive: Rash All Other Systems Reviewed And Are Negative: Yes Physical Exam Triage Information Reviewed: Yes Vital Signs On Initial Exam: Initial Vitals Temp Pulse Resp BP Pulse Ox 97.8 F 73 16 107/67 97 12/07/18 23:02 12/07/18 23:02 12/07/18 23:02 12/07/18 23:02 12/07/18 23:02 Vital Signs Reviewed: Yes Appearance: Positive: Well-Appearing Skin: Positive: Warm, Dry, Other - erythema rash across arms, legs, and back, no scaling seen, blanches Head/Face: Positive: Normal Head/Face Inspection Eyes: Positive: Normal, Conjunctiva Clear ENT: Positive: Pharynx normal Respiratory/Lung Sounds: Positive: Clear to Auscultation, Breath Sounds Present Cardiovascular: Positive: Normal, RRR Abdomen Description: Positive: Nontender, Soft Bowel Sounds: Positive: Present Musculoskeletal: Positive: Normal Neurological: Positive: Normal Psychiatric: Positive: Normal Diagnostics - Vital Signs Vital Signs Temp Pulse Resp BP Pulse Ox 12/07/18 23:02 97.8 F 73 16 107/67 97 - Laboratory Lab Statement: Any lab studies that have been ordered have been reviewed, and results considered in the medical decision making process. Course/Dx - Course Course Of Treatment: 48 year old female presents with rash for the past week. States that she was admitted to hospital for chest pain last week. She states she noticed a rash on her right wrist a week. since then she has noticed the rash has been spreading. Is not itchy. Denies any other symptoms. No chest pressure or shortness of breath. no abdominal pain. No recent illness. No one with similar rash. has been outdoors. On exam has a macular erythematous rash. The rash blanches. No scaling. Rash appears most like a urticaria rash. The patient denies any itching or other symptoms so do not think is such. will treat as potential fungal infection with ketoconazole as some of lesions appear like ringworm. Told if develop itching to start Benadryl. Told to follow up primary. Patient understands agrees with plan. - Differential Diagnoses - Skin Complaint Differential Diagnoses: Contact Dermatitis, Tinea, Urticaria - Diagnoses Provider Diagnoses: Rash Discharge - Sign-Out/Discharge Documenting (check all that apply): Patient Departure Patient Received Moderate/Deep Sedation with Procedure: No - Discharge Plan Condition: Good Disposition: HOME Prescriptions: Ketoconazole 120 ml TP ONCE #1 shampoo Patient Education Materials: Acute Rash (ED) Referrals: Irena Qureshi MD [Primary Care Provider] - Additional Instructions: take benadryl every 6 hours for any itching lather shampoo on body and leave for 5 minutes and then rinse off once follow up with primary Return to ED if develop any new or worsening symptoms - Billing Disposition and Condition Condition: GOOD Disposition: Home
[2018-12-08 01:10] VITALS: BP 110/60
== END 2018-12-08 01:08 | disposition home or self-care (01) ==
LOC: ED 23:00
DX: R21 Rash and other nonspecific skin eruption (principal)
CPT/HCPCS: 99282

== ENCOUNTER 2018-12-13 23:52 | Emergency (ER) | payer BC ==
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
--- NOTE | 2018-12-14 00:39 | ED ---
Skin Complaint - HPI Summary HPI Summary: This patient is a 48 year old female presenting to [facility] with a chief complaint of rash since 2 weeks ago. She states her PCP prescribed her steroids and she states it has gotten worse since. She states it is intermittently pruritic. She states it is not currently itching. Patient denies fever, nausea, vomiting, neck pain, and photophobia. Citalopram TAB* [CeleXA TAB*] 30 mg PO DAILY 08/27/17 [History Confirmed ] Omeprazole CAP (NF) [Prilosec CAP* 20 MG] 20 mg PO DAILY 08/27/17 [History Confirmed 12/08/18] Folic Acid TAB* [Folvite TAB*] 1 mg PO DAILY 12/13/17 [History Confirmed ] Gabapentin TAB(NF) [Neurontin 600 mg TAB(NF)] 600 mg PO BID 12/13/17 [History Confirmed 12/08/18] Zonisamide(NF) [Zonegran(NF)] 200 mg PO BEDTIME 12/13/17 [History Confirmed 09/21] Doxepin (NF) 10 mg PO BEDTIME 05/20/18 [History Confirmed 12/08/18] Fluticasone NASAL SPRAY 50MCG* [Flonase NASAL SPRAY 50MCG*] 2 spray BOTH NARES DAILY #1 btl 09/29/18 [Rx Confirmed 12/08/18] Ofloxacin 0.3% (Eye Drop) [Ocuflox OPTH 0.3% (Eye Drop)] 2 drop BOTH EYES Q6HR # 1 btl 09/29/18 [Rx Confirmed 12/08/18] Ketorolac TAB * [Toradol TAB *] 10 mg PO Q6H #16 tab 11/28/18 [Rx Confirmed 09/21] guaiFENesin ER TAB [Mucinex*] 600 mg PO BID 11/28/18 [History Confirmed 12/08/18 ] guaiFENesin/CODIEN 100MG-10MG* [Robitussin AC 100Mg-10Mg*] 10 ml PO Q4H PRN [History Confirmed 12/08/18] Ketoconazole 120 ml TP ONCE #1 shampoo 12/08/18 [Rx] Amoxicillin/Clavulanate TAB* [Augmentin TAB 500 mg*] 500 mg PO DAILY 12/14/18 [ History Confirmed 12/14/18] - History of Current Complaint Chief Complaint: EDRashSkinAbscess Time Seen by Provider: 12/14/18 00:32 Stated Complaint: RASHES PER PT Hx Obtained From: Patient Hx Last Menstrual Period: tubal ligation Onset/Duration: Started Weeks Ago Skin Exposure Onset/Duration: Weeks Ago Pain Intensity: 0 Skin Location: Diffuse - Allergy/Home Medications Allergies/Adverse Reactions: Allergies Allergy/AdvReac Type Severity Reaction Status Date / Time niacin Allergy Rash Verified 12/13/18 23:57 metoclopramide [From Reglan] AdvReac Agitation Verified 12/13/18 23:57 Home Medications: Home Medications Amoxicillin/Clavulanate TAB* [Augmentin TAB 500 mg*] 500 mg PO DAILY 12/14/18 [ History Confirmed 12/14/18] PMH/Surg Hx/FS Hx/Imm Hx Endocrine/Hematology History: Denies: Hx Anticoagulant Therapy, Hx Diabetes, Hx Thyroid Disease Cardiovascular History: Reports: Hx Angina, Other Cardiovascular Problems/ Disorders - CP WITH CARDIAC CATH IN 2011 WITH NO FINDINGS. Denies: Hx Hypertension, Hx Pacemaker/ICD Respiratory History: Reports: Other Respiratory Problems/Disorders - SOB WITH NAUSEA OR ANXIETY Denies: Hx Asthma, Hx Chronic Obstructive Pulmonary Disease (COPD) History: Denies: Hx Renal Disease Musculoskeletal History: Reports: Hx Back Problems, Other Musculoskeletal History - Restless leg syndrome, undiagnosed probs with spine and left side Sensory History: Reports: Hx Contacts or Glasses Denies: Hx Hearing Aid Opthamlomology History: Reports: Hx Contacts or Glasses Neurological History: Reports: Hx Headaches, Hx Migraine, Other Neuro Impairments/Disorders - restless leg syndrome, sees mamtaman as out pt Denies: Hx Dementia, Hx Seizures Psychiatric History: Reports: Hx Anxiety Denies: Hx Panic Disorder, Hx Substance Abuse - Cancer History Hx Chemotherapy: No Hx Radiation Therapy: No Hx Palliative Cancer Treatment: No - Surgical History Surgery Procedure, Year, and Place: throat biopsy. x2. tubal ligation. hernia repair x2. left oophrectomy. 3 lumps removed 2 were on rt and lt arm and then one on rt buttock Hx Anesthesia Reactions: No - Immunization History Date of Tetanus Vaccine: Unk Date of Influenza Vaccine: Philisophically opposed Infectious Disease History: No Infectious Disease History: Denies: Hx Hepatitis, Hx Human Immunodeficiency Virus (HIV), History Other Infectious Disease, Traveled Outside the [place] in Last 30 Days - Family History Known Family History: Positive: Cardiac Disease - CAD, Non-Contributory - Social History Alcohol Use: Rare Alcohol Amount: 1-2 PER MONTH Hx Substance Use: No Substance Use Type: Reports: None Hx Tobacco Use: No Smoking Status (MU): Never Smoked Tobacco Review of Systems Negative: Fever Negative: Photophobia Negative: Vomiting, Nausea Positive: Other - Neg: Neck pain Positive: Rash All Other Systems Reviewed And Are Negative: Yes Physical Exam - Summary Physical Exam Summary: VITAL SIGNS: Reviewed. GENERAL: Patient is a well-developed and nourished FEMALE) who is lying comfortable in the stretcher. Patient is not in any acute respiratory distress. HEAD AND FACE: No signs of trauma. No ecchymosis, hematomas or skull depressions. No sinus tenderness. EYES: PERRLA, EOMI x 2, No injected conjunctiva, no nystagmus. EARS: Hearing grossly intact. Ear canals and tympanic membranes are within normal limits. MOUTH: Oropharynx within normal limits. NECK: Supple, trachea is midline, no adenopathy, no JVD, no carotid bruit, no c- spine tenderness, neck with full ROM. No nuchal rigidity. CHEST: Symmetric, no tenderness at palpation LUNGS: Clear to auscultation bilaterally. No wheezing or crackles. CVS: Regular rate and rhythm, S1 and S2 present, no murmurs or gallops appreciated. ABDOMEN: Soft, non-tender. No signs of distention. No rebound no guarding, and no masses palpated. Bowel sounds are normal. EXTREMITIES: FROM in all major joints, no edema, no cyanosis or clubbing. NEURO: Alert and oriented x 3. No acute neurological deficits. Speech is normal and follows commands. SKIN: Dry and warm. Multiple, variable sizes, of ECM. Triage Information Reviewed: Yes Vital Signs On Initial Exam: Initial Vitals Temp Pulse Resp BP Pulse Ox 98.8 F 79 16 112/61 97 12/13/18 23:54 12/13/18 23:54 12/13/18 23:54 12/13/18 23:54 12/13/18 23:54 Vital Signs Reviewed: Yes Diagnostics - Vital Signs Vital Signs Temp Pulse Resp BP Pulse Ox 12/13/18 23:54 98.8 F 79 16 112/61 97 - Laboratory Result Diagrams: 12/14/18 01:01 12/14/18 01:01 Lab Statement: Any lab studies that have been ordered have been reviewed, and results considered in the medical decision making process. Course/Dx - Course Course Of Treatment: This patient is a 48 year old female presenting to [facility] with a chief complaint of rash since 2 weeks ago. Physical exam revealed multiple, variable sizes, of ECM, consistent with disseminated Lyme disease. The patient does not have neurological symptoms. The patient was administered Doxycycline in the ED. The patient was instructed to follow up with Infectious Disease. A plan for discharge was discussed with the patient and she was agreeable with this plan. - Diagnoses Provider Diagnoses: Disseminated Lyme disease Discharge - Sign-Out/Discharge Documenting (check all that apply): Patient Departure - Discharge Patient Received Moderate/Deep Sedation with Procedure: No - Discharge Plan Condition: Stable Disposition: HOME Prescriptions: DOXYcycline CAP(*) [DOXYcycline 100MG CAP(*)] 100 mg PO BID #42 cap Patient Education Materials: Lyme Disease (ED) Referrals: Esteban ATWOOD,Sanya York [Medical Doctor] - Additional Instructions: Stop the prednisone and do not take the amoxicillin. Follow up with the Infectious Disease specialist. Return to ED with new or worsening symptoms. - Billing Disposition and Condition Condition: STABLE Disposition: Home - Attestation Statements Document Initiated by Ravindra: Yes Documenting Scribe: Zhang Alvarez Provider For Whom Ravindra is Documenting (Include Credential): Chencho Mercado MD Scribe Attestation: Zhang Owen scribed for Chencho Mercado MD on 12/15/18 at 0356. Scribe Documentation Reviewed: Yes Provider Attestation: The documentation as recorded by the Zhang olsen accurately reflects the service I personally performed and the decisions made by , Chencho Mercado MD Status of Scribe Document: Viewed
[2018-12-14] MEDS ORDERED: DOXYcycline CAP(*) 100 MG PO ONE (00:49)
[2018-12-14 01:18] LABS: ABS Lymphocytes 0.4 10^3/ul (1.0-4.8); ABS Monocytes 0.3 10^3/ul (0-0.8); ABS Neutrophils 9.8 10^3/ul (1.5-7.7); Hematocrit 36 % (35-47); Hemoglobin 12.3 g/dL (12.0-16.0); Mean Corpuscular HGB Conc 34 g/dL (31-36); Mean Corpuscular Hemoglobin 30 pg (27-31); Mean Corpuscular Volume 89 fL (80-97); Mean Platelet Volume 7.2 fL (7.4-10.4); Nucleated Red Blood Cells % 0.1; Platelet Count 269 10^3/uL (150-450); Red Blood Count 4.07 10^6 /uL (3.70-4.87); Red Cell Distribution Width 14 % (10-15); White Blood Count 10.5 10^3/uL (3.5-10.8)
[2018-12-14 01:30] LABS: Albumin 3.7 g/dL (3.2-5.2); Albumin/Globulin Ratio 1.2 (1-3); BUN/Creatinine Ratio 16.2 (8-20); C Reactive Protein 42.9 mg/L (<8.01); Calcium 8.9 mg/dL (8.6-10.3); EGFR African American 112.7 (>60); EGFR Non-African American 93.2 (>60); Globulin 3.1 g/dL (2-4); Potassium 3.9 mmol/L (3.5-5.0); Total Bilirubin 0.3 mg/dL (0.2-1.0); Total Protein 6.8 g/dL (6.4-8.9)
[2018-12-14 02:00] VITALS: BP 94/60
--- NOTE | 2018-12-15 06:37 | PN ---
Progress Note - Progress Note Date of Service: 12/14/18 Note: Lyme serology positive. Discussed with Dr. Mercado who treated the patient Patient currently on Doxy and aware of Lyme diagnoses Follow up with PCP
== END 2018-12-14 01:59 | disposition home or self-care (01) ==
LOC: ED 23:52
DX: A69.20 Lyme disease, unspecified (principal); F41.9 Anxiety disorder, unspecified; Z88.8 Allergy status to other drugs, medicaments and biological substances
CPT/HCPCS: 36415; 80053; 85025; 86140; 86617; 86618; 99283; A9270-GY

== ENCOUNTER 2019-05-13 13:10 | Emergency (ER) | payer SELFPAY ==
--- OUTSIDE RECORDS SUMMARY | 2019-05-13 13:34 | XMS REPORT ---
:1970 Author Organization [facility] Care Team Providers Name Role Phone Cole Aldrich Unavailable Unavailable PROBLEMS Unknown Problems ALLERGIES No Information ENCOUNTERS Encounter Location Date Diagnosis [facility] [address] [facility] [address] Apr, [facility] [address] [place] [phone] Apr, [facility] [address] [facility] [address] Mar, [facility] [address] [place] [address], [place] [address] Feb, [address] Feb, [phone] [facility] [address] [place] [address], [place] [address] Jan, [facility] [address] [place] [address], [place] [address] September, [facility] [address] [place] [phone] Aug, [facility] [address] [place] [address] Aug, [phone] [facility] [address] [facility] [address] Jul, [facility] [address] [facility] [place] [address] Jul, [facility] [address] [facility] [address] Jun, [facility] [address] [place] May, [phone] [facility] [address] [facility] [address] May, [facility] [address] [place] [address] May, [facility] [address] [place] [address] [place], [phone] IMMUNIZATIONS No Known Immunizations SOCIAL HISTORY Never Assessed REASON FOR REFERRAL FUNCTIONAL STATUS PLAN OF CARE VITAL SIGNS MEDICATIONS Medication Instructions Dosage Frequency Start Date End Date Duration Status Omeprazole Active Gabapentin Active Zonisamide Active Folic Acid Active Doxepin HCl Active Citalopram Active Hydrobromide PROCEDURES Procedure Date Ordered Result Body Site RESIN COMPOS - 1 SURFACE POSTERIOR Mar 16, 2019 RESULTS No Results REASON FOR VISIT Insurance Providers [facility] Health Member Patient Patient Patient Patient Patient Subscriber Subscriber Subscriber Group Insurance Plan Plan Plan Plan ID Relationship Address Phone Name Date of ID Name Date of No Type Insurance Insurance Insurance Coverage to Subscriber Address Phone Name Dates Medicaid [id number] [phone] Medicaid self [place] [id number] [facility] [address] [place] [address] Blue [phone] Blue self [place] [id number] Choice Opt [address] [place] [address] [place] [id number] [place] [facility] [address] Blue [phone] Blue self [place] [id number] [place] [id number] [address] [place] [address] [place] Medical [address] MEDICAL (GENERAL) HISTORY Type Description Date Medical History anxiety Medical History depression Medical History heartburn Medical History headache
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
--- NOTE | 2019-05-13 13:44 | ED ---
Upper Extremity Pain - HPI Summary HPI Summary: Patient is a 49 y/o F presenting to the ED for a chief complaint of left shoulder pain that began after a fall at 09:20 on 05/13/19. Patient is present with her . Patient describes that she was walking when she slipped on ice after getting out of her van, landing on her left shoulder and back. She currently complains of left shoulder and left upper back pain. The pain is rated as a 9/10 in severity. Patient denies loss of consciousness, head injury, or edema. Around 09:30, patient took 800 mg of ibuprofen. Any aggravating or alleviating factors are denied. PMHx is significant for restless legs syndrome and headaches. PSHx is significant for 2 C-sections. Patient denies tobacco or drug use, but she admits occasional alcohol use. - History of Current Complaint Chief Complaint: EDFall Stated Complaint: FELL ON ICE PER PT Time Seen by Provider: 05/13/19 13:38 Hx Obtained From: Patient Hx Last Menstrual Period: tubal ligation Mechanism Of Injury: Fall From A Standing Position Onset/Duration: Traumatic - Fall, Still Present Timing: Constant Severity Initially: Moderate Severity Currently: Moderate Pain Location: Shoulder - Left, Other: - Left upper back Character: Unable to Describe Aggravating Factor(s): Nothing Alleviating Factor(s): Nothing Associated Signs & Symptoms: Negative: Swelling, Other - Negative loss of consciousness - Allergies/Home Medications Allergies/Adverse Reactions: Allergies Allergy/AdvReac Type Severity Reaction Status Date / Time niacin Allergy Rash Verified 05/13/19 13:26 metoclopramide [From Reglan] AdvReac Agitation Verified 05/13/19 13:26 PMH/Surg Hx/FS Hx/Imm Hx Previously Healthy: Yes Endocrine/Hematology History: Denies: Hx Anticoagulant Therapy, Hx Diabetes, Hx Thyroid Disease Cardiovascular History: Reports: Hx Angina, Other Cardiovascular Problems/ Disorders - CP WITH CARDIAC CATH IN 2011 WITH NO FINDINGS. Denies: Hx Hypertension, Hx Pacemaker/ICD Respiratory History: Reports: Other Respiratory Problems/Disorders - SOB WITH NAUSEA OR ANXIETY Denies: Hx Asthma, Hx Chronic Obstructive Pulmonary Disease (COPD) History: Denies: Hx Renal Disease Musculoskeletal History: Reports: Hx Back Problems, Other Musculoskeletal History - Restless leg syndrome, undiagnosed probs with spine and left side Sensory History: Reports: Hx Contacts or Glasses Denies: Hx Legally Blind, Hx Deafness, Hx Hearing Aid Opthamlomology History: Reports: Hx Contacts or Glasses Denies: Hx Legally Blind EENT History: Denies: Hx Deafness Neurological History: Reports: Hx Headaches, Hx Migraine, Other Neuro Impairments/Disorders - restless leg syndrome, sees stackman as out pt Denies: Hx Dementia, Hx Seizures Psychiatric History: Reports: Hx Anxiety Denies: Hx Panic Disorder, Hx Substance Abuse - Cancer History Hx Chemotherapy: No Hx Radiation Therapy: No Hx Palliative Cancer Treatment: No - Surgical History Surgical History: Yes Surgery Procedure, Year, and Place: throat biopsy. x2. tubal ligation. hernia repair x2. left oophrectomy. 3 lumps removed 2 were on rt and lt arm and then one on rt buttock Hx Anesthesia Reactions: No - Immunization History Date of Tetanus Vaccine: Unk Date of Influenza Vaccine: Philisophically opposed Infectious Disease History: No Infectious Disease History: Denies: Hx Hepatitis, Hx Human Immunodeficiency Virus (HIV), History Other Infectious Disease, Traveled Outside the [place] in Last 30 Days - Family History Known Family History: Positive: Cardiac Disease - CAD - Social History Occupation: Employed Full-time Lives: With Family Alcohol Use: Rare Alcohol Amount: 1-2 PER MONTH Hx Substance Use: No Substance Use Type: Reports: None Hx Tobacco Use: No Smoking Status (MU): Never Smoked Tobacco Review of Systems Positive: Arthralgia - Left shoulder, Myalgia - Left upper back. Negative: Edema Negative: Syncope - Negative loss of consciousness All Other Systems Reviewed And Are Negative: Yes Physical Exam - Summary Physical Exam Summary: VITAL SIGNS: Reviewed. GENERAL: Patient is a well-developed and nourished FEMALE who is lying comfortable in the stretcher. Patient is not in any acute respiratory distress. HEAD AND FACE: No signs of trauma. No ecchymosis, hematomas or skull depressions. No sinus tenderness.. EYES: PERRLA, EOMI x 2, No injected conjunctiva, no nystagmus. EARS: Hearing grossly intact. Ear canals and tympanic membranes are within normal limits. MOUTH: Oropharynx within normal limits. NECK: Supple, trachea is midline, no adenopathy, no JVD, no carotid bruit, no c- spine tenderness, neck with full ROM. CHEST: Symmetric, no tenderness at palpation. LUNGS: Clear to auscultation bilaterally. No wheezing or crackles. CVS: Regular rate and rhythm, S1 and S2 present, no murmurs or gallops appreciated. ABDOMEN: Soft, non-tender. No signs of distention. No rebound, no guarding, and no masses palpated. Bowel sounds are normal. EXTREMITIES: No edema, no cyanosis or clubbing. No deformity, no hematoma, good capillary refill, decreased ROM in the left shoulder secondary to pain. NEURO: Alert and oriented x 3. No acute neurological deficits. Speech is normal and follows commands. SKIN: Dry and warm. Triage Information Reviewed: Yes Vital Signs On Initial Exam: Initial Vitals Temp Pulse Resp BP Pulse Ox 97.8 F 64 16 107/59 100 05/13/19 13:21 05/13/19 13:21 05/13/19 13:21 05/13/19 13:21 05/13/19 13:21 Vital Signs Reviewed: Yes Procedures - Sedation Patient Received Moderate/Deep Sedation with Procedure: No Diagnostics - Vital Signs Vital Signs Temp Pulse Resp BP Pulse Ox 05/13/19 13:21 97.8 F 64 16 107/59 100 - Laboratory Lab Statement: Any lab studies that have been ordered have been reviewed, and results considered in the medical decision making process. - Radiology Chest X-ray Radiology Interpretation Completed By: Radiologist Summary of Radiographic Findings: Chest X-ray IMPRESSION: No active cardiopulmonary disease is noted. Reviewed by Dr. Jasso. Scapula X-ray Radiology Interpretation Completed By: Radiologist Summary of Radiographic Findings: Scapula X-ray IMPRESSION: No definite fracture of the left scapula is noted. Reviewed by Dr. Jasso. Shoulder X-ray Radiology Interpretation Completed By: Radiologist Summary of Radiographic Findings: Shoulder X-ray IMPRESSION: No fracture of the left shoulder is noted. Reviewed by Dr. Jasso. Course/Dx - Course Assessment/Plan: Patient is a 49 y/o F presenting to the ED for a chief complaint of left shoulder pain that began after a fall at 09:20 on 05/13/19. Patient is present with her . Patient describes that she was walking when she slipped on ice after getting out of her van, landing on her left shoulder and back. She currently complains of left shoulder and left upper back pain. The pain is rated as a 9/10 in severity. Patient denies loss of consciousness, head injury, or edema. Around 09:30, patient took 800 mg of ibuprofen. Any aggravating or alleviating factors are denied. PMHx is significant for restless legs syndrome and headaches. PSHx is significant for 2 C-sections. Patient denies tobacco or drug use, but she admits occasional alcohol use. X-ray of the shoulder and the scapula is negative for acute fracture dislocation. Chest x-ray is negative for acute pathology. In the ED course, the patient was given Toradol and the symptoms have improved. Therefore , at this time the patient will be discharged home to follow-up with her primary care physician. Patient is hemodynamically stable, and alert and oriented 3. - Diagnoses Differential Diagnosis/HQI/PQRI: Positive: Bursitis, Contusion, Fracture (Closed ), Strain, Sprain Provider Diagnoses: Shoulder pain Discharge ED - Sign-Out/Discharge Documenting (check all that apply): Patient Departure - Discharge - Discharge Plan Condition: Stable Disposition: HOME Patient Education Materials: Shoulder Pain (ED) Forms: *Work Release Referrals: Irena Qureshi MD [Primary Care Provider] - Additional Instructions: FOLLOW UP WITH YOUR PRIMARY CARE PROVIDER WITHIN 3 DAYS. RETURN TO THE EMERGENCY DEPARTMENT FOR ANY WORSENING OR NEW SYMPTOMS. - Billing Disposition and Condition Condition: STABLE Disposition: Home - Attestation Statements Document Initiated by Ravindra: Yes Documenting Scribe: Mirna Avila Provider For Whom Ravindra is Documenting (Include Credential): Nehemiah Jasso MD Scribe Attestation: Mirna Owen scribed for Nehemiah Jasso MD on 05/13/19 at 1839. Scribe Documentation Reviewed: Yes Provider Attestation: The documentation as recorded by the Mirna olsen accurately reflects the service I personally performed and the decisions made by me, Nehemiah Jasso MD Status of Scribe Document: Viewed
[2019-05-13] MEDS ORDERED: Ketorolac *IM* INJ* 60 MG/2 ML VIAL IM ONE (13:54)
[2019-05-13 15:27] VITALS: BP 107/65
== END 2019-05-13 15:25 | disposition home or self-care (01) ==
LOC: ED 13:10
DX: M25.512 Pain in left shoulder (principal); F41.9 Anxiety disorder, unspecified; Z98.51 Tubal ligation status; Z90.721 Acquired absence of ovaries, unilateral; Z88.8 Allergy status to other drugs, medicaments and biological substances
CPT/HCPCS: 71045; 96372; 99282; J1885